=== PATIENT | male | born 1940 | race Caucasian/White ===

== ENCOUNTER 2019-07-01 09:42 | Emergency (ER) | payer MEDICARE, OTHER ==
[~2019-07-01] VITALS: Ht 185.5 cm; Wt 90.9 kg
[2019-07-01 10:04] LABS: HEMATOCRIT 47 % (40-54); HEMOGLOBIN 15.5 G/DL (13.3-17.7); MEAN CORPUSCULAR HEMOGLOBIN 30 PG (25-34); MEAN CORPUSCULAR HGB CONC 33 G/DL (32-36); MEAN CORPUSCULAR VOLUME 90 FL (80-99); MEAN PLATELET VOLUME 9.8 FL (7.4-10.4); PLATELET COUNT 282 10^3/uL (130-400); RED CELL DISTRIBUTION WIDTH 12.4 % (10.0-14.5); WHITE BLOOD COUNT 7.8 10^3/uL (4.3-11.0)
[2019-07-01 10:05] LABS: BASOPHILS # (AUTO) 0.1 10^3/uL (0.0-0.1); BASOPHILS % (AUTO) 1 % (0-10); EOSINOPHILS # (AUTO) 0.1 10^3/uL (0.0-0.3); EOSINOPHILS % (AUTO) 1 % (0-10); LYMPHOCYTES # (AUTO) 2.1 X 10^3 (1.0-4.0); LYMPHOCYTES % (AUTO) 27 % (12-44); MONOCYTES # (AUTO) 0.8 X 10^3 (0.0-1.0); MONOCYTES % (AUTO) 11 % (0-12); NEUTROPHILS # (AUTO) 4.6 X 10^3 (1.8-7.8); NEUTROPHILS % (AUTO) 60 % (42-75)
--- NOTE | 2019-07-01 10:06 | ED Abdominal Pain ---
General Chief Complaint: Abdominal/GI Problems Stated Complaint: ABD PAIN History of Present Illness Date Seen by Provider: Jul 01, 2019 Time Seen by Provider: 10:01 Initial Comments 78 yo male this AM on awakening noted LLQ abd/flank pain had normal BM this AM but had been constipated no N or V no urinary sx's denies hx of prior similar episodes no hx of urologic issues no prior episodes of diverticulitis had flu and pneumonia 3 weeks ago, those sx's pretty much gone now pt continues to not be able to give a urine ample bladder scan shows 350 catheter placed and eventually ~ 1 liter UA trace blood other neg pt's sx's TOTALLY RELIEVED after bladder drained Allergies and Home Medications Allergies Coded Allergies: No Known Drug Allergies (Unverified , 07/01/19) Patient Home Medication List Home Medication List Reviewed: Yes Review of Systems Review of Systems Constitutional: no symptoms reported; No fever EENTM: No Symptoms Reported Respiratory: No Symptoms Reported Cardiovascular: No Symptoms Reported Gastrointestinal: Abdominal Pain; Denies Nausea, Denies Vomiting Genitourinary: No Symptoms Reported Musculoskeletal: no symptoms reported Skin: no symptoms reported Psychiatric/Neurological: No Symptoms Reported Physical Exam Vital Signs Vital Signs - First Documented 07/01/19 09:45 Temp 37.1 Pulse 82 Resp 18 B/P (MAP) 159/89 (112) Pulse Ox 94 O2 Delivery Room Air Capillary Refill : Height/Weight/BMI Height: '" Weight: lbs. oz. kg; BMI Method: General Appearance: WD/WN, no apparent distress HEENT: PERRL/EOMI, pharynx normal Neck: supple Respiratory: lungs clear, normal breath sounds Cardiovascular: regular rate, rhythm Gastrointestinal: normal bowel sounds, non tender, soft; No guarding, No rebound Back: normal inspection Male: normal genitalia Neurologic/Psychiatric: zoning technician II-XII nml as tested, no motor/sensory deficits, alert, normal mood/affect, oriented x 3 Skin: normal color, warm/dry Progress/Results/Core Measures Results/Orders Lab Results Laboratory Tests Test 07/01/19 09:55 07/01/19 11:09 Range/Units White Blood Count 7.8 4.3-11.0 10^3/uL Red Blood Count 5.22 4.35-5.85 10^6/uL Hemoglobin 15.5 13.3-17.7 G/DL Hematocrit 47 40-54 % Mean Corpuscular Volume 90 80-99 FL Mean Corpuscular Hemoglobin 30 25-34 PG Mean Corpuscular Hemoglobin Concent 33 32-36 G/DL Red Cell Distribution Width 12.4 10.0-14.5 % Platelet Count 282 130-400 10^3/uL Mean Platelet Volume 9.8 7.4-10.4 FL Neutrophils (%) (Auto) 60 42-75 % Lymphocytes (%) (Auto) 27 12-44 % Monocytes (%) (Auto) 11 0-12 % Eosinophils (%) (Auto) 1 0-10 % Basophils (%) (Auto) 1 0-10 % Neutrophils # (Auto) 4.6 1.8-7.8 X 10^3 Lymphocytes # (Auto) 2.1 1.0-4.0 X 10^3 Monocytes # (Auto) 0.8 0.0-1.0 X 10^3 Eosinophils # (Auto) 0.1 0.0-0.3 10^3/uL Basophils # (Auto) 0.1 0.0-0.1 10^3/uL Sodium Level 140 135-145 MMOL/L Potassium Level 4.2 3.6-5.0 MMOL/L Chloride Level 101 98-107 MMOL/L Carbon Dioxide Level 27 21-32 MMOL/L Anion Gap 12 5-14 MMOL/L Blood Urea Nitrogen 12 7-18 MG/DL Creatinine 0.85 0.60-1.30 MG/DL Estimat Glomerular Filtration Rate > 60 BUN/Creatinine Ratio 14 Glucose Level 121 H 70-105 MG/DL Calcium Level 9.1 8.5-10.1 MG/DL Corrected Calcium 8.9 8.5-10.1 MG/DL Total Bilirubin 1.0 0.1-1.0 MG/DL Aspartate Amino Transf (AST/SGOT) 16 5-34 U/L Alanine Aminotransferase (ALT/SGPT) 13 0-55 U/L Alkaline Phosphatase 46 40-136 U/L Total Protein 7.3 6.4-8.2 GM/DL Albumin 4.2 3.2-4.5 GM/DL Urine Color YELLOW Urine Clarity CLEAR Urine pH 7.0 5-9 Urine Specific [place] 1.010 L 1.016-1.022 Urine Protein NEGATIVE NEGATIVE Urine Glucose (UA) NEGATIVE NEGATIVE Urine Ketones NEGATIVE NEGATIVE Urine Nitrite NEGATIVE NEGATIVE Urine Bilirubin NEGATIVE NEGATIVE Urine Urobilinogen 0.2 < = 1.0 MG/DL Urine Leukocyte Esterase NEGATIVE NEGATIVE Urine RBC (Auto) 2+ H NEGATIVE Urine RBC 0-2 /HPF Urine WBC NONE /HPF Urine Squamous Epithelial Cells RARE /HPF Urine Crystals NONE /LPF Urine Bacteria NEGATIVE /HPF Urine Casts NONE /LPF Urine Mucus NONE /LPF Urine Culture Indicated NO My Orders Orders - ITZ REICH MD Iv Heplock-Insert (Order) (07/01/19 09:53) Cbc With Automated Diff (07/01/19 09:53) Comprehensive Metabolic Panel (07/01/19 09:53) Urinalysis (07/01/19 09:53) Fentanyl Injection (Sublimaze Injection (07/01/19 11:00) Lidocaine 2% (Urojet) (Xylocaine Urojet) (07/01/19 10:52) Medications Given in ED Current Medications Medications Dose Ordered Sig/Rand Route Start Time Stop Time Status Last Admin Dose Admin Fentanyl Citrate 25 mcg Q1H PRN IVP 07/01/19 11:00 07/01/19 10:58 25 MCG Lidocaine HCl 10 ml STK-MED ONCE .ROUTE 07/01/19 10:52 07/01/19 10:55 DC 07/01/19 10:59 10 ML Vital Signs/I&O 07/01/19 09:45 Temp 37.1 Pulse 82 Resp 18 B/P (MAP) 159/89 (112) Pulse Ox 94 O2 Delivery Room Air Progress Progress Note : Progress Note blood work normal pt has urinary retention will leave in catheter Rx cipro follow up Uro Dr. Mock Departure Impression Primary Impression: Urinary retention Disposition: 01 HOME, SELF-CARE Condition: Stable Departure-Patient Inst. Decision time for Depature: 11:36 Referrals: JANEL JEFFREY MD (PCP/Family) Primary Care Physician Patient Instructions: Urinary Retention (DC) Add. Discharge Instructions: please call Tuesday AM for a follow up appointment with [phone] Scripts Ciprofloxacin HCl (Ciprofloxacin HCl) 500 Mg Tablet 250 MG PO BID for 5 Days, #10 TAB Prov: ITZ REICH MD 07/01/19 ITZ REICH MD Jul 01, 2019 10:06 POS
[2019-07-01 10:27] LABS: BUN/CREATININE RATIO 14; CARBON DIOXIDE 27 MMOL/L (21-32); CHLORIDE 101 MMOL/L (98-107); CREATININE SERUM 0.85 MG/DL (0.60-1.30); GFR ESTIMATED > 60; POTASSIUM 4.2 MMOL/L (3.6-5.0); SODIUM 140 MMOL/L (135-145)
[2019-07-01 10:28] LABS: ALANINE AMINOTRANSFERASE 13 U/L (0-55); ALBUMIN 4.2 GM/DL (3.2-4.5); ALKALINE PHOSPHATASE 46 U/L (40-136); CALCIUM 9.1 MG/DL (8.5-10.1); GLUCOSE 121 MG/DL (70-105); TOTAL PROTEIN 7.3 GM/DL (6.4-8.2)
[2019-07-01] MEDS ORDERED: LIDOCAINE UROJET 2% GEL 10 ML PKG ONE (10:52)
[2019-07-01] MEDS ORDERED: fentaNYL INJECTION 100 MCG/2 ML AMP IVP PRN (11:00)
[2019-07-01 11:20] LABS: BACTERIA,URINE NEGATIVE /HPF; BILIRUBIN,URINE NEGATIVE (NEGATIVE); CLARITY,URINE CLEAR; COLOR,URINE YELLOW; GLUCOSE, URINE (UA) NEGATIVE (NEGATIVE); KETONES,URINE NEGATIVE (NEGATIVE); LEUKOCYTE ESTERASE ,URINE NEGATIVE (NEGATIVE); NITRITE,URINE NEGATIVE (NEGATIVE); PROTEIN,URINE NEGATIVE (NEGATIVE); RBC,URINE 0-2 /HPF; SQUAMOUS EPITHELIAL CELL,UR RARE /HPF
[2019-07-01] MEDS ORDERED: CIPR500T4 PO (11:37)
[2019-07-01 12:15] VITALS: BP 130/70
== END 2019-07-01 12:18 | disposition home or self-care (01) ==
LOC: EDUNIT# 09:42 → ER FS 09:44
DX: R33.9 Retention of urine, unspecified (principal)
CPT/HCPCS: 36415; 51702; 80053; 81000; 85025

== ENCOUNTER 2019-07-14 15:13 | Emergency (ER) | payer MEDICARE, OTHER ==
[~2019-07-14] VITALS: Ht 185 cm; Wt 92.4 kg
[~2019-07-14 15:13] MED LIST: CIPR500T4 PO
[2019-07-14] MEDS ORDERED: LIDOCAINE UROJET 2% GEL 10 ML PKG ONE (15:26)
--- NOTE | 2019-07-14 15:46 | ED GU-Male ---
General Chief Complaint: - Urinary Stated Complaint: UNABLE TO URINATE Nursing Triage Note: Was seen here two weeks ago for urinary retention and had a catheter placed. Dr Brown removed the catheter on 07/10. Has been urinating ok until last night. Is now only able to urinate very small amounts and is feeling pressure and some suprapubic pain rated at 7/10. He is scheduled to see Dr Brown again on Jul 24 and states they are planning for prostate surgery. Source: patient, family Exam Limitations: no limitations History of Present Illness Date Seen by Provider: Jul 14, 2019 Time Seen by Provider: 15:42 Initial Comments This 78-year-old white male presents and urinary retention that began this afternoon. The patient and had a similar presentation within the last few days for which she was catheterized and referred to Dr. Brown. Patient was placed on Bactrim. He had his Duke catheter removed on July 10 and did well until today (July 14). The patient denies associated fever, chills, flank pain, hematuria, nausea, vomiting, or diarrhea. Allergies and Home Medications Allergies Coded Allergies: No Known Drug Allergies (Unverified , 07/01/19) Home Medications Ciprofloxacin HCl 500 Mg Tablet, 250 MG PO BID Prescribed by: ITZ REICH on 07/01/19 1137 Patient Home Medication List Home Medication List Reviewed: Yes Review of Systems Review of Systems Constitutional: No fever EENTM: no symptoms reported Respiratory: No cough Cardiovascular: No chest pain Gastrointestinal: No abdominal pain, No vomiting Genitourinary: denies burning, denies dysuria, denies frequency; other Musculoskeletal: No back pain (urinary retention) Skin: no symptoms reported Psychiatric/Neurological: No Symptoms Reported Endocrine: No Symptoms Reported Hematologic/Lymphatic: No Symptoms Reported Past Ivvfjqa-Wafvul-Tpnrjr Hx Past Med/Social Hx: Reviewed Nursing Past Med/Soc Hx Patient Social History Alcohol Use: Denies Use Recreational Drug Use: No Smoking Status: Never a Smoker 2nd Hand Smoke Exposure: No Recent Foreign Travel: No Contact w/Someone Who Travel: No Recent Infectious Disease Expo: No Recent Hopitalizations: No Physical Abuse: No Sexual Abuse: No Mistreated: No Fear: No Seasonal Allergies Seasonal Allergies: No Past Medical History Surgeries: Yes Tonsillectomy Respiratory: No Cardiac: No Neurological: No Genitourinary: Yes Benign Prostatic Hyperpl Gastrointestinal: No Musculoskeletal: No Endocrine: No HEENT: No Cancer: No Psychosocial: No Integumentary: Yes (shingles) Physical Exam Vital Signs Vital Signs - First Documented 07/14/19 15:28 Temp 36.4 Pulse 89 Resp 16 B/P (MAP) 159/88 (111) Pulse Ox 96 Capillary Refill : Less Than 3 Seconds Height, Weight, BMI Height: '" Weight: lbs. oz. kg; 26.00 BMI Method: General Appearance: mild distress; No WD/WN HEENT: normal ENT inspection Neck: normal inspection Cardiovascular: regular rate, rhythm Respiratory: lungs clear, normal breath sounds Gastrointestinal: normal bowel sounds, distended (over the suprapubic region) Back: normal inspection Extremities: normal range of motion, normal inspection Neurologic/Psychiatric: no motor/sensory deficits, alert, normal mood/affect Skin: normal color, warm/dry Progress/Results/Core Measures Suspected Sepsis Recent Fever Within 48 Hours: No Infection Criteria Present: None New/Unexplained Altered Menta: No Sepsis Screen: No Definite Risk SIRS Temperature: Pulse: 89 Respiratory Rate: 16 Blood Pressure 159 /88 Mean: 111 Results/Orders Lab Results Laboratory Tests Test 07/14/19 15:45 Range/Units Urine Color YELLOW Urine Clarity CLEAR Urine pH 7.0 5-9 Urine Specific [place] 1.010 L 1.016-1.022 Urine Protein NEGATIVE NEGATIVE Urine Glucose (UA) NEGATIVE NEGATIVE Urine Ketones NEGATIVE NEGATIVE Urine Nitrite NEGATIVE NEGATIVE Urine Bilirubin NEGATIVE NEGATIVE Urine Urobilinogen 0.2 < = 1.0 MG/DL Urine Leukocyte Esterase NEGATIVE NEGATIVE Urine RBC (Auto) NEGATIVE NEGATIVE Urine RBC NONE /HPF Urine WBC RARE /HPF Urine Squamous Epithelial Cells RARE /HPF Urine Crystals NONE /LPF Urine Bacteria NEGATIVE /HPF Urine Casts NONE /LPF Urine Mucus NEGATIVE /LPF Urine Culture Indicated NO My Orders Orders - JASON CHRISTOPHER MD Lidocaine 2% (Urojet) (Xylocaine Urojet) (07/14/19 15:26) Catheter(Uri) To Dependent Brandy (07/14/19 15:39) Ua Culture If Indicated (07/14/19 15:39) Vital Signs/I&O 07/14/19 15:28 Temp 36.4 Pulse 89 Resp 16 B/P (MAP) 159/88 (111) Pulse Ox 96 Capillary Refill : Less Than 3 Seconds Blood Pressure Mean: 111 Progress Note : Time: 16:05 Progress Note Duke catheter was placed and patient had a liter of urine drained with significant improvement in his discomfort. The urinalysis was unremarkable. Patient was given a leg bag to take home. I wrote a prescription for more Bactrim DS. I asked the patient follow-up with his urologist Dr. Valdovinos on Tuesday. He was invited to return to the emergency department if any further problems or questions. Departure Impression Primary Impression: Urinary retention Disposition: HOME, SELF-CARE Condition: Improved Departure-Patient Inst. Decision time for Depature: 16:07 Referrals: JANEL JEFFREY MD (PCP) Primary Care Physician LEE BROWN MD Patient Instructions: Urinary Retention (DC) Add. Discharge Instructions: Continue with the Bactrim DS. Use the Duke catheter. Call Dr. Brown's office Tuesday morning. Them come back for any problems or questions. All discharge instructions reviewed with patient and/or family. Voiced understanding. Scripts Sulfamethoxazole/Trimethoprim (Bactrim Ds Tablet) 1 Each Tablet 1 EACH PO BID for 10 Days, TAB Prov: JASON CHRISTOPHER MD 07/14/19 JASON CHRISTOPHER MD Jul 14, 2019 15:46
[2019-07-14 15:59] LABS: BACTERIA,URINE NEGATIVE /HPF; BILIRUBIN,URINE NEGATIVE (NEGATIVE); CLARITY,URINE CLEAR; COLOR,URINE YELLOW; GLUCOSE, URINE (UA) NEGATIVE (NEGATIVE); KETONES,URINE NEGATIVE (NEGATIVE); LEUKOCYTE ESTERASE ,URINE NEGATIVE (NEGATIVE); NITRITE,URINE NEGATIVE (NEGATIVE); PROTEIN,URINE NEGATIVE (NEGATIVE); SQUAMOUS EPITHELIAL CELL,UR RARE /HPF; WBC,URINE RARE /HPF
[2019-07-14] MEDS ORDERED: SULF1TAB35 PO (16:10)
[2019-07-14 16:28] VITALS: BP 114/63
== END 2019-07-14 16:31 | disposition home or self-care (01) ==
LOC: EDUNIT# 15:13 → ER FS 15:14
DX: R33.9 Retention of urine, unspecified (principal); Z90.89 Acquired absence of other organs
CPT/HCPCS: 51702; 81000

== ENCOUNTER 2019-07-18 00:36 | Emergency (ER) | payer MEDICARE, OTHER ==
[~2019-07-18] VITALS: Ht 185.5 cm; Wt 90.9 kg
[~2019-07-18 00:36] MED LIST changes: +SULF1TAB35 PO
--- NOTE | 2019-07-18 00:54 | ED GU-Female ---
General Chief Complaint: - Urinary Stated Complaint: ABD PAIN Source: patient Exam Limitations: no limitations History of Present Illness Date Seen by Provider: Jul 18, 2019 Time Seen by Provider: 00:50 Initial Comments Patient complains of suprapubic discomfort and inability to urinate for the past several hours. He had his Duke catheter removed (inserted for urinary retention) this morning. He has been unable to urinate since this afternoon. This is his third episode of urinary retention in the past 2 weeks. He denies fevers or chills. He has some lower back pain. He is still on antibiotics and Flomax. Allergies and Home Medications Allergies Coded Allergies: No Known Drug Allergies (Unverified , 07/01/19) Home Medications Ciprofloxacin HCl 500 Mg Tablet, 250 MG PO BID Prescribed by: ITZ REICH on 07/01/19 1137 Sulfamethoxazole/Trimethoprim 1 Each Tablet, 1 EACH PO BID Prescribed by: JASON CHRISTOPHER MD on 07/14/19 1610 Patient Home Medication List Home Medication List Reviewed: Yes Review of Systems Review of Systems Constitutional: no symptoms reported Respiratory: no symptoms reported Cardiovascular: no symptoms reported Gastrointestinal: abdominal pain Genitourinary: see HPI Musculoskeletal: back pain All Other Systemes Reviewed Negative Unless Noted: Yes Past Htavtaq-Xwnasm-Djrwyq Hx Patient Social History Alcohol Use: Denies Use Recreational Drug Use: No 2nd Hand Smoke Exposure: No Recent Foreign Travel: No Contact w/Someone Who Travel: No Recent Hopitalizations: No Physical Abuse: No Sexual Abuse: No Mistreated: No Fear: No Seasonal Allergies Seasonal Allergies: No Past Medical History Surgeries: Yes Tonsillectomy Respiratory: No Cardiac: No Neurological: No Genitourinary: Yes Benign Prostatic Hyperpl Gastrointestinal: No Musculoskeletal: No Endocrine: No HEENT: No Cancer: No Psychosocial: No Integumentary: Yes (shingles) Physical Exam Vital Signs Capillary Refill : Height, Weight, BMI Height: '" Weight: lbs. oz. kg; 26.00 BMI Method: General Appearance: WD/WN, no apparent distress Neck: supple Cardiovascular: regular rate, rhythm Respiratory: lungs clear Gastrointestinal: soft, distended (distended bladder) Extremities: normal inspection Neurologic/Psychiatric: alert, normal mood/affect Skin: normal color, warm/dry Progress/Results/Core Measures Suspected Sepsis SIRS Temperature: Pulse: Respiratory Rate: Blood Pressure / Mean: Results/Orders My Orders Orders - JENNY RAY MD Catheter(Uri) To Dependent Brandy (07/18/19 00:45) Vital Signs/I&O Capillary Refill : Departure Impression Primary Impression: Urinary retention Disposition: HOME, SELF-CARE Condition: Improved Departure-Patient Inst. Decision time for Depature: 00:52 Referrals: JANEL JEFFREY MD (PCP/Family) Primary Care Physician Patient Instructions: How to Care for Your Duke Catheter, Male Add. Discharge Instructions: See your urologist as soon as possible. Empty the catheter bag as needed. All discharge instructions reviewed with patient and/or family. Voiced understanding. JENNY RAY MD Jul 18, 2019 00:53
[2019-07-18 01:09] VITALS: BP 156/76
== END 2019-07-18 01:09 | disposition home or self-care (01) ==
LOC: EDUNIT# 00:36 → ER FS 00:38
DX: R33.9 Retention of urine, unspecified (principal); Z90.89 Acquired absence of other organs
CPT/HCPCS: 51702

== ENCOUNTER 2019-07-19 09:27 | Emergency (ER) | payer MEDICARE, OTHER ==
[~2019-07-19] VITALS: Ht 185.5 cm; Wt 90.9 kg
--- NOTE | 2019-07-19 10:02 | ED GU-Male ---
General Chief Complaint: catheter not flowing Stated Complaint: CATHETER PROBLEM History of Present Illness Date Seen by Provider: Jul 19, 2019 Time Seen by Provider: 09:57 Initial Comments 78 yo male seen by myself 07-01 with LLQ pain eventually found to be 2ndary to urinary retention corbin placed with relief catheter has since been removed twice resulting in recurrent retention both times so had corbin placed for 3rd time yest pt noted urine output stopped and pain returned overnight nurses tried to irrigate but occluded removed (clot in tip) new corbin placed with sig volume return pt now comfortable again is still on sulfa antiibiotic Allergies and Home Medications Allergies Coded Allergies: No Known Drug Allergies (Unverified , 07/01/19) Home Medications Ciprofloxacin HCl 500 Mg Tablet, 250 MG PO BID Prescribed by: ITZ REICH on 07/01/19 1137 Sulfamethoxazole/Trimethoprim 1 Each Tablet, 1 EACH PO BID Prescribed by: JASON CHRISTOPHER MD on 07/14/19 1610 Patient Home Medication List Home Medication List Reviewed: Yes Review of Systems Review of Systems Constitutional: No fever Respiratory: no symptoms reported Cardiovascular: no symptoms reported Gastrointestinal: abdominal pain; No diarrhea, No vomiting Genitourinary: other (see HPI) Musculoskeletal: no symptoms reported Skin: no symptoms reported Past Eeyozkd-Bmlols-Ridfcn Hx Patient Social History 2nd Hand Smoke Exposure: No Recent Foreign Travel: No Recent Hopitalizations: No Seasonal Allergies Seasonal Allergies: No Past Medical History Surgeries: Yes Tonsillectomy Respiratory: No Cardiac: No Neurological: No Genitourinary: Yes Benign Prostatic Hyperpl Gastrointestinal: No Musculoskeletal: No Endocrine: No HEENT: No Cancer: No Psychosocial: No Integumentary: Yes (shingles) Physical Exam Vital Signs Capillary Refill : Height, Weight, BMI Height: '" Weight: lbs. oz. kg; 26.00 BMI Method: General Appearance: WD/WN, mild distress HEENT: PERRL/EOMI, pharynx normal Neck: supple Cardiovascular: regular rate, rhythm Gastrointestinal: normal bowel sounds, soft, other (suprapubic fullness and tenderness) Procedures/Interventions see HPI with new cath in, blood cleared and pt comfortable Progress/Results/Core Measures Suspected Sepsis SIRS Temperature: Pulse: Respiratory Rate: Blood Pressure / Mean: Results/Orders Vital Signs/I&O Capillary Refill : Departure Impression Primary Impression: Corbin catheter problem Qualified Codes: T83.9XXA - Unspecified complication of genitourinary prosthetic device, implant and graft, initial encounter Disposition: 01 HOME, SELF-CARE Condition: Improved Departure-Patient Inst. Decision time for Depature: 10:03 Referrals: JANEL JEFFREY MD (PCP/Family) Primary Care Physician Patient Instructions: How to Care for Your Corbin Catheter, Male Add. Discharge Instructions: would just plan on keeping catheter in for now continue the antibiotic follow up with urology ITZ REICH MD Jul 19, 2019 10:02
[2019-07-19 10:05] VITALS: BP 130/72
== END 2019-07-19 10:05 | disposition home or self-care (01) ==
LOC: EDUNIT# 09:27 → ER FS 09:28
DX: T83.098A Other mechanical complication of other urinary catheter, initial encounter (principal); Z90.89 Acquired absence of other organs
CPT/HCPCS: 51702

== ENCOUNTER 2019-08-01 05:54 | Inpatient (IN) | payer MEDICARE, OTHER ==
[2019-08-01] VITALS (13 sets, daily range): BP systolic 73–147; BP diastolic 49–107
[~2019-08-01] VITALS: Ht 185.4 cm; Wt 90.9 kg
[~2019-08-01 05:54] MED LIST changes: +GABA-488 PO
[2019-08-01] MEDS ORDERED: ROCURONIUM 10 MG/ML 5 ML SYRINGE IV ONE (06:35)
[2019-08-01] MEDS ORDERED: ONDANSETRON 4 MG/2 ML (SDV) Z0FRAN ONE (06:35)
[2019-08-01] MEDS ORDERED: proPOfol 200 MG/20 ML (DIPRIVAN) VIAL IV ONE (06:35)
[2019-08-01] MEDS ORDERED: fentaNYL INJECTION 100 MCG/2 ML AMP ONE (06:35)
[2019-08-01] MEDS ORDERED: GLYCOPYRROLATE 0.2 MG/ML (ROBINUL) 2 ML VIAL ONE (06:35)
[2019-08-01] MEDS ORDERED: LIDOCAINE PF 2% 5 ML (XYLOCAINE) VIAL ONE (06:35)
[2019-08-01] MEDS ORDERED: SEVOFLURANE (ULTANE) 15 ML INHAL SOLN ONE ×5 (06:35→09:21)
[2019-08-01] MEDS ORDERED: MIDAZOLAM 2 MG/2 ML (VERSED) VIAL ONE (06:35)
[2019-08-01] MEDS ORDERED: DEXAMETHASONE 10 MG/ML (DECADRON) 1 ML VIAL ONE (06:35)
[2019-08-01 06:42] LABS: BASOPHILS % (AUTO) 1 % (0-10); EOSINOPHILS # (AUTO) 0.1 10^3/uL (0.0-0.3); EOSINOPHILS % (AUTO) 1 % (0-10); HEMATOCRIT 43 % (40-54); HEMOGLOBIN 14.2 G/DL (13.3-17.7); LYMPHOCYTES # (AUTO) 2.5 X 10^3 (1.0-4.0); LYMPHOCYTES % (AUTO) 34 % (12-44); MEAN CORPUSCULAR HEMOGLOBIN 29 PG (25-34); MEAN CORPUSCULAR HGB CONC 33 G/DL (32-36); MEAN CORPUSCULAR VOLUME 88 FL (80-99); MEAN PLATELET VOLUME 9.5 FL (7.4-10.4); MONOCYTES # (AUTO) 0.7 X 10^3 (0.0-1.0); MONOCYTES % (AUTO) 9 % (0-12); NEUTROPHILS # (AUTO) 4.2 X 10^3 (1.8-7.8); NEUTROPHILS % (AUTO) 56 % (42-75); PLATELET COUNT 265 10^3/uL (130-400); WHITE BLOOD COUNT 7.5 10^3/uL (4.3-11.0)
[2019-08-01] MEDS ORDERED: cefTRIAXone FOR IV USE 1,000 MG in WATER (STERILE) FOR INJECTION 10 ML IV ONE (06:45)
[2019-08-01] MEDS ORDERED: GENTAMICIN 40 MG/ML 2 ML INJ SDV ONE (06:53)
--- NOTE | 2019-08-01 06:57 | Progress Note-Pre Operative ---
Pre-Operative Progress Note H&P Reviewed The H&P was reviewed, patient examined and no changes noted. Date Seen by Provider: Aug 01, 2019 Time Seen by Provider: 06:56 Date H&P Reviewed: Aug 01, 2019 Time H&P Reviewed: 06:56 Pre-Operative Diagnosis: BPH WITH PROSTATISM AND URINE RETENTION LEE BROWN MD Aug 01, 2019 06:57
[2019-08-01 07:00] LABS: BUN/CREATININE RATIO 13; CARBON DIOXIDE 24 MMOL/L (21-32); CHLORIDE 105 MMOL/L (98-107); CREATININE SERUM 0.83 MG/DL (0.60-1.30); GFR ESTIMATED > 60; GLUCOSE 107 MG/DL (70-105); POTASSIUM 3.8 MMOL/L (3.6-5.0); SODIUM 140 MMOL/L (135-145)
[2019-08-01] MEDS ORDERED: CATHETER FLUSH 10 ML SYR IV PRN (07:15)
[2019-08-01] MEDS: LACTATED RINGERS 1,000 ML IV PRN ×4 (07:23→10:19)
[2019-08-01] MEDS ORDERED: BUPIVACAINE 0.25% 30 ML (SENSORCAINE) VIAL ONE (09:04)
--- NOTE | 2019-08-01 09:25 | Progress Note-Post Operative ---
Post-Operative Progess Note Surgeon (s)/Civil Engineering Draftsperson (s) Surgeon LEE BROWN MD Civil Engineering Draftsperson: SHASHANK Pre-Operative Diagnosis BPH WITH PROSTATISM AND URINE RETENTION Post-Operative Diagnosis SAME Procedure & Operative Findings Date of Procedure 08/01/19 Procedure Performed/Findings SUPRAPUBIC PROSTATECTOMY Anesthesia Type GENERAL Estimated Blood Loss Estimated blood loss (mL): 300CC Specimens/Packing Specimens Removed PROSTATIC ADENOMA Packing: HEMOVAC DRAIN, URETHRAL AND SUPRAPUBIC CATHETERS LEE BROWN MD Aug 01, 2019 09:25
[2019-08-01] MEDS ORDERED: ONDANSETRON 4 MG/2 ML (SDV) Z0FRAN IVP PRN ×2 (09:45→11:15)
[2019-08-01] MEDS ORDERED: MEPERIDINE (DEMEROL) INJ 50 MG/ML IVP ONE (09:45)
[2019-08-01] MEDS ORDERED: morphine INJ 10 MG/ML 1ML (SYR OR VIAL) IVP ONE (09:45)
[2019-08-01 10:03] LABS: HEMOGLOBIN 12.4 G/DL (13.3-17.7); MEAN PLATELET VOLUME 9.4 FL (7.4-10.4); RED CELL DISTRIBUTION WIDTH 12.7 % (10.0-14.5)
[2019-08-01 10:20] LABS: BUN/CREATININE RATIO 14; CARBON DIOXIDE 24 MMOL/L (21-32); CHLORIDE 108 MMOL/L (98-107); GFR ESTIMATED > 60; GLUCOSE 143 MG/DL (70-105); POTASSIUM 4.4 MMOL/L (3.6-5.0); SODIUM 139 MMOL/L (135-145)
--- NOTE | 2019-08-01 10:40 | NUR ---
this RN took over patient care at this time. Meme RN from PACU explained to this RN CBI and Dr Sanches expectations post opp. all 3 drains are draining fine, dressing to midline is clean dry and intact. patient verbalizes no other needs at this time. family is verbalizing patient need for pain medication. this RN informed them that patient would be on a DRY CANS OPERATOR as soon as it was available
--- NOTE | 2019-08-01 10:40 | NUR ---
WILFREDO FLORES admitted to room 419-1, with an admitting diagnosis of post operative open suprapubic prostatectomy, on 08/01/19 from day Surgery via bed, accompanied by family and staff.WILFREDO FLORES introduced to surroundings, call light, bed controls, phone, TV, temperature control, lights, meal times, smoking policy, visitor policy, side rail policy, bathrooms and showers. Patient Rights given to patient in the handbook. WILFREDO FLORES verbalizes understanding that [facility] is not responsible for the loss or damage to any personal effects or valuables that are kept in the patients posession during their hospitalization. WILFREDO FLORES verbalizes understanding of Interdisciplinary Patient Education. Patient and/or family were informed about the Rapid Response Team and its purpose.
[2019-08-01] MEDS ORDERED: LACTATED RINGERS 1,000 ML IV SCH (11:15)
[2019-08-01] MEDS ORDERED: cefTRIAXone FOR IV USE 2,000 MG in WATER (STERILE) FOR INJECTION 20 ML IV SCH (11:15)
[2019-08-01] MEDS ORDERED: NALOXONE 0.4 MG/ML 1 ML (NARCAN) VIAL IV PRN (11:45)
[2019-08-01] MEDS ORDERED: METOCLOPRAMIDE INJ 10 MG/2 ML (REGLAN) IV PRN (11:45)
[2019-08-01] MEDS ORDERED: ONDANSETRON 4 MG/2 ML (SDV) Z0FRAN IV PRN (11:45)
[2019-08-01] MEDS: fentaNYL INJECTION 1,000 MCG in NS (IVPB) 80 ML IV SCH (12:51)
[2019-08-01] MEDS: NS IV 1000 ML 1,000 ML IV SCH (12:58)
--- NOTE | 2019-08-01 15:08 | Consultation - Hospitalist ---
HPI History of Present Illness: HPI/Chief Complaint Pt is 78yoCM with a PMH of postherpetic neuralgia and BPH who was admitted for prostatectomy. Per patient he had severe retention that developed over the past month and was found to have a very large prostate. He has no complaints at this time. Pain is well controlled. Daughter is concerned about blood loss in the OR but hgb is stable. I am consulted for medical management. Source: patient Date Seen 08/01/19 Attending Physician Bro Mock MD PCP Neo Roberts MD Referring Physician Date of Admission Aug 01, 2019 at 05:54 Home Medications & Allergies Home Medications Reviewed patient Home Medication Reconciliation performed by pharmacy medication reconciliations computer laboratory technician and/or nursing. Patients Allergies have been reviewed. Allergies Allergies Coded Allergies No Known Drug Allergies (Unverified07/27/19) Past Fcxkmzb-Bexzgb-Kqhrit Hx Past Med/Social Hx: Reviewed Nursing Past Med/Soc Hx Patient Social History Marrital Status: Alcohol Use: Denies Use Recreational Drug Use: No Former Smoker, Quit: Jul 27, 1989 2nd Hand Smoke Exposure: Yes Physical Abuse Screen: No Sexual Abuse: No Recent Foreign Travel: No Contact w/other who traveled: No Recent Hopitalizations: No Recent Infectious Disease Expo: No Immunizations Up To Date Date of Influenza Vaccine: Apr 23, 2019 Seasonal Allergies Seasonal Allergies: No Past Medical History Surgeries: Prostatectomy, Tonsillectomy Neurological: Neuropathy Sexually Transmitted Disease: No HIV/AIDS: No Genitourinary: Benign Prostatic Hyperpl, Prostate Problems Loss of Vision: Denies Hearing Impairment: Denies History of Blood Disorders: No Adverse Reaction to Blood Garay: No (N/A) Review of Systems Constitutional: no symptoms reported EENTM: no symptoms reported Respiratory: no symptoms reported Cardiovascular: no symptoms reported Gastrointestinal: no symptoms reported Genitourinary: see HPI Musculoskeletal: no symptoms reported Skin: no symptoms reported Psychiatric/Neurological: No Symptoms Reported Physical Exam Physical Exam Vital Signs Vital Signs - First Documented 08/01/19 06:05 Temp 36.5 Pulse 72 Resp 20 B/P (MAP) 147/107 (120) Pulse Ox 96 O2 Delivery Room Air Capillary Refill : Height, Weight, BMI Height: '" Weight: lbs. oz. kg; 26.44 BMI Method: General Appearance: No Apparent Distress, WD/WN Respiratory: Lungs Clear, No Accessory Muscle Use, No Respiratory Distress Cardiovascular: Regular Rate, Rhythm, No Murmur Gastrointestinal: Normal Bowel Sounds, Non Tender, Soft Neurologic/Psychiatric: Alert, Oriented x3, Normal Mood/Affect Skin: Normal Color, Warm/Dry Results Results/Procedures Labs Laboratory Tests 08/01/19 06:25 08/01/19 09:50 Patient resulted labs reviewed. Assessment/Plan Assessment and Plan Assess & Plan/Chief Complaint BPH s/p prostatectomy Management per primary Hold Lovenox until ok with Dr Mock path pending Postherpetic neuralgia Resume home gabapentin when able to PO Anemia acute blood loss, trend DIANA PARKINSON MD Aug 01, 2019 15:08
[2019-08-01] MEDS: cefTRIAXone FOR IV USE 2,000 MG in WATER (STERILE) FOR INJECTION 20 ML IV SCH (16:03)
--- NOTE | 2019-08-01 19:53 | OPERATIVE REPORT ---
DATE OF SERVICE: 08/01/2019 PREOPERATIVE DIAGNOSIS: Benign prostatic hypertrophy with prostatism and retention. POSTOPERATIVE DIAGNOSIS: Benign prostatic hyperplasia with prostatism and retention. OPERATION PERFORMED: Suprapubic prostatectomy. SURGEON: Bro Brown MD. ANESTHESIA: General. LABORER SHELLFISH PROCESSING: Storm Bower DO COMPLICATIONS: None. DESCRIPTION OF PROCEDURE: Under satisfactory general anesthesia, the patient in supine position, abdomen, genitalia and thigh were prepped and draped in the usual sterile fashion. After filling of the bladder was about 400 mL of antibiotic solution through the existing catheter that was removed before prepping. A midline incision was made from the symphysis pubis to below the umbilicus, carried through the skin, subcutaneous tissue and fascia. Midline was identified and the recti were retracted laterally. Suprapubic space was developed bluntly. The Harmon retractor was applied. A cystotomy vertically was performed. The fluid from the bladder was drained. A third blade was put to expose the inside of the bladder, visualized the intravesical protrusion of the prostate. It was elevated to visualize the trigone and the ureteral orifice that were kept on attention all through the surgery and were never traumatized. I went ahead and performed a circumcising type of incision around the median lobe as well as the other part of the prostate on the lateral lobe and anteriorly developed the surgical capsule with my finger and dissected all around. The dissection posteriorly was a little bit more difficult. However, we did not run into any problem and we stayed in our plane. The prostate was sent for weight and pathology. I put a suture between the trigone and the capsule of the prostate to there for easy catheterization in the future. Ureteric orifices were seen spurting urine at all time. A vaginal pack was placed and pressure was applied. This was then removed and hemostasis was very satisfactory. A 22-Bulgarian 3-way 30 mL balloon catheter was inserted in the bladder, the balloon inflated to 60 mL and put on some traction for hemostasis. A suprapubic tube was placed through a separate stab wound on the left side of the incision to be brought separately in the anterior wall of the bladder. The balloon was not inflated, except later after closing of the bladder with 10 mL of fluid. The bladder was closed in two layers, first the mucosa with running 3-0 chromic catgut and then the seromuscular layer with interrupted 2-0 chromic catgut. We irrigated by hand both catheters freely and there was no leak or extravasation from the cystostomy. Hemostasis was very satisfactory. The retropubic space was drained with a Brett drain brought through a separate stab wound on the right side of the incision and secured in position with an 0 silk suture. Closure was performed in layers, the fascia with interrupted 0 Vicryl, the subcutaneous tissue with few interrupted 3-0 plain and the skin with messi. Suprapubic tube was secured in position with 0 silk suture. We let the CBI run through the urethral catheter and the suprapubic tube to gravity. The ureteral catheter was put on traction. The color of the urine was very satisfactory at the end of the procedure. The needle and sponge counts correct x2. Estimated blood loss was 300 mL, none of which was replaced. We will check a CBC and basic metabolic panel in the recovery room, and in the morning, we will have the hospitalist to manage him medically since his doctor is in [place]. The patient tolerated the procedure and anesthesia well, and was sent to recovery room in stable condition after applying dressing and anesthesia performing epigastric block for pain control from the incision. Job ID: [id number] DocumentID: [id number] Dictated Date: 08/01/2019 10:09:31 Trucking Contractor Date: 08/01/2019 15:50:05 Dictated By: BRO BROWN MD
[2019-08-01] MEDS ORDERED: ZOLPIDEM 5 MG (AMBIEN) TAB ONE ×2 (21:25→23:20)
[2019-08-01] MEDS: ZOLPIDEM 5 MG (AMBIEN) TAB PO PRN ×2 (21:33→23:30)
[2019-08-01] MEDS: diphenhydrAMINE 50 MG/ML INJ (BENADRYL) IV PRN (21:47)
[2019-08-02 00:05] VITALS: BP 116/66
[2019-08-02 04:10] VITALS: BP 110/61
[2019-08-02 06:51] LABS: BASOPHILS % (AUTO) 0 % (0-10); EOSINOPHILS % (AUTO) 0 % (0-10); HEMATOCRIT 35 % (40-54); HEMOGLOBIN 11.5 G/DL (13.3-17.7); LYMPHOCYTES # (AUTO) 1.9 X 10^3 (1.0-4.0); LYMPHOCYTES % (AUTO) 13 % (12-44); MEAN CORPUSCULAR HEMOGLOBIN 30 PG (25-34); MEAN CORPUSCULAR HGB CONC 33 G/DL (32-36); MEAN CORPUSCULAR VOLUME 89 FL (80-99); MONOCYTES # (AUTO) 1.8 X 10^3 (0.0-1.0); MONOCYTES % (AUTO) 12 % (0-12); NEUTROPHILS # (AUTO) 11.4 X 10^3 (1.8-7.8); NEUTROPHILS % (AUTO) 75 % (42-75); PLATELET COUNT 250 10^3/uL (130-400); WHITE BLOOD COUNT 15.2 10^3/uL (4.3-11.0)
[2019-08-02 07:20] LABS: BUN/CREATININE RATIO 19; CARBON DIOXIDE 21 MMOL/L (21-32); CHLORIDE 107 MMOL/L (98-107); CREATININE SERUM 0.79 MG/DL (0.60-1.30); GFR ESTIMATED > 60; GLUCOSE 118 MG/DL (70-105); POTASSIUM 4.7 MMOL/L (3.6-5.0); SODIUM 138 MMOL/L (135-145)
[2019-08-02 07:25] LABS: BAND NEUTROPHILS 6 %; BASOPHILS % (MANUAL) 0 %; EOSINOPHILS % (MANUAL) 0 %; LYMPHOCYTES % (MANUAL) 11 %; MONOCYTES % (MANUAL) 9 %; NEUTROPHILS % (MANUAL) 74 %
[2019-08-02 07:26] LABS: ELLIPT/OVALOCYTES SLIGHT
[2019-08-02 07:34] VITALS: BP 121/61
[2019-08-02] MEDS: SENNA W/DOCUSATE (SENOKOT S) TABLET PO SCH (08:26)
--- NOTE | 2019-08-02 10:49 | Anesthesia-General Post-Op ---
General Patient Condition Mental Status/LOC: Same as Preop Cardiovascular: Satisfactory Nausea/Vomiting: Absent Respiratory: Satisfactory Pain: Controlled Complications: Absent Post Op Complications Complications None Follow Up Care/Instructions Patient Instructions None needed. Anesthesia/Patient Condition Patient Condition Patient is doing well, no complaints, stable vital signs, no apparent adverse anesthesia problems. No complications reported per nursing. KIMBERLEE TOLBERT CRNA Aug 02, 2019 10:49
--- NOTE | 2019-08-02 11:18 | Progress Note - Urology ---
Progress Note-Urology Progress Notes/Assess & Plan Progress/Assessment & Plan AFEBRILE, VSS. FEELS WELL, WANTS TO START PO INTAKE, PASSING FLATUS. HAD SOME LT SHOULDER AND SIDE PAIN, NO CHEST PAIN, NO SOB, NO NAUSEA, NO DIAPHORESIS. NO PAIN OR TENDER CALVES, URINE CLEAR AND TINGED ON SLOW CBI DRIP. DENIES BLADDER SPASMS. ABDOMEN SOFT NON TENDER. LABS STABLE. Final Diagnosis BPH WITH RETENTION SP SPP PROSTATECTOMY LEE BROWN MD Aug 02, 2019 11:18
[2019-08-02 12:58] VITALS: BP 142/78
[2019-08-02] MEDS: cefTRIAXone FOR IV USE 2,000 MG in WATER (STERILE) FOR INJECTION 20 ML IV SCH (14:59)
[2019-08-02 16:00] VITALS: BP 133/74
[2019-08-02] MEDS: NS IV 1000 ML 1,000 ML IV SCH (17:32)
[2019-08-02 19:25] VITALS: BP 137/75
[2019-08-02] MEDS: diphenhydrAMINE 50 MG/ML INJ (BENADRYL) IV PRN (21:03)
[2019-08-02] MEDS: ZOLPIDEM 5 MG (AMBIEN) TAB PO PRN (21:05)
[2019-08-03 00:42] VITALS: BP 152/87
[2019-08-03] MEDS: fentaNYL INJECTION 1,000 MCG in NS (IVPB) 80 ML IV SCH (02:35)
[2019-08-03] MEDS: diphenhydrAMINE 50 MG/ML INJ (BENADRYL) IV PRN (02:36)
[2019-08-03 03:36] VITALS: BP 149/88
[2019-08-03 05:12] LABS: BASOPHILS % (AUTO) 0 % (0-10); EOSINOPHILS % (AUTO) 0 % (0-10); HEMATOCRIT 34 % (40-54); HEMOGLOBIN 11.1 G/DL (13.3-17.7); LYMPHOCYTES # (AUTO) 1.5 X 10^3 (1.0-4.0); LYMPHOCYTES % (AUTO) 11 % (12-44); MEAN CORPUSCULAR HEMOGLOBIN 29 PG (25-34); MEAN CORPUSCULAR HGB CONC 33 G/DL (32-36); MEAN CORPUSCULAR VOLUME 90 FL (80-99); MONOCYTES # (AUTO) 1.6 X 10^3 (0.0-1.0); MONOCYTES % (AUTO) 11 % (0-12); NEUTROPHILS # (AUTO) 11.3 X 10^3 (1.8-7.8); NEUTROPHILS % (AUTO) 78 % (42-75); PLATELET COUNT 237 10^3/uL (130-400); RED CELL DISTRIBUTION WIDTH 12.9 % (10.0-14.5); WHITE BLOOD COUNT 14.4 10^3/uL (4.3-11.0)
[2019-08-03 05:28] LABS: BUN/CREATININE RATIO 16; CALCIUM 8.1 MG/DL (8.5-10.1); CARBON DIOXIDE 21 MMOL/L (21-32); CHLORIDE 103 MMOL/L (98-107); CREATININE SERUM 0.67 MG/DL (0.60-1.30); GFR ESTIMATED > 60; GLUCOSE 110 MG/DL (70-105); POTASSIUM 3.9 MMOL/L (3.6-5.0); SODIUM 134 MMOL/L (135-145)
[2019-08-03 06:09] LABS: LYMPHOCYTES % (MANUAL) 10 %; MONOCYTES % (MANUAL) 12 %; NEUTROPHILS % (MANUAL) 78 %
[2019-08-03 08:00] VITALS: BP 153/80
--- NOTE | 2019-08-03 09:55 | Progress Note - Urology ---
Progress Note-Urology Progress Notes/Assess & Plan Progress/Assessment & Plan CONTINUES WELL. COMPLAINS OF INSOMNIA. NO PAINS. PASSING A LOT OF FLATUS AND TOLERATES PO WELL. URINE CRYSTAL CLEAR. HEMOVAC DECREASED. LABS STABLE. ABDOMEN SOFT. PLAN PER ORDERS Final Diagnosis BPH WITH RETENTION POST SPP LEE BROWN MD Aug 03, 2019 09:55
[2019-08-03] MEDS: SENNA W/DOCUSATE (SENOKOT S) TABLET PO SCH (10:00)
[2019-08-03] MEDS ORDERED: PATIENT MAY USE OWN MEDS, ALL MC SCH (11:30)
[2019-08-03 12:00] VITALS: BP 138/81
--- NOTE | 2019-08-03 12:48 | Physical Therapy Evaluation ---
PT Evaluation-General Medical Diagnosis Admission Date Aug 01, 2019 at 05:54 Medical Diagnosis: BPH/retention Onset Date: Aug 01, 2019 Therapy Diagnosis Therapy Diagnosis: generalized weakness/debility Precautions Precautions/Isolations: Fall Prevention, Standard Precautions Referral Physician: Nish Reason for Referral: Evaluation/Treatment Medical History Additional Medical History benign prostatic hyperpla Current History s/p lap Reviewed History: Yes Social History Home: Single Level Current Living Status: Spouse Prior Prior Level of Function SCALE: Activities may be completed with or without assistive devices. 8-Rjijprvqam-iajgucx completes the activity by him/herself with no assistance from a helper. 5-Set-up or Clean-up Assistance-helper sets up or cleans up; patient completes activity. [place] assists only prior to or following the activity. 4-Supervision or Touching Assistance-helper provides verbal cues and/or touching/steadying and/or contact guard assistance as patient completes activit y. Assistance may be provided throughout the activity or intermittently. 3-Partial/Moderate Assistance-helper does LESS THAN HALF the effort. [place] lifts, holds or supports trunk or limbs, but provides less than half the effort. 2-Substantial/Maximal Assistance-helper does MORE THAN HALF the effort. [place] lifts or holds trunk or limbs and provides more than half the effort. 1-Tfcbhubng-ampxcb does ALL the effort. Patient does none of the effort to complete the activity. Or, the assistance of 2 or more helpers is required for the patient to complete the activity. If activity was not attempted, code reason: 7-Patient Refused. 9-Not Applicable-not attempted and the patient did not perform the activity before the current illness, exacerbation or injury. 10-Not Attempted due to Environmental Limitations-(lack of equipment, weather restraints, etc.). 88-Not Attempted due to Medical Conditions or Safety Concerns. Bed Mobility: 6 Transfers (B,C,W/C): 6 Gait: 6 Stairs: 6 Indoor Mobility (Ambulation): Independent Stairs: Independent Prior Devices Use: None PT Evaluation-Current Subjective Patient agrees to PT. Family present Pain Numeric Pain Scale: 10-Worst Possible Pain Location: Lower Location Body Site: Abdomen Pain Description: Acute Objective Patient Orientation: Normal For Age Attachments: Drains, Duke Catheter, IV ROM/Strength ROM Lower Extremities bilateral LE WFL Strength Lower Extremities 3/5 grossly bilateral LE Integumentary/Posture Integumentary refer to nursing notes Bladder Incontinence: Duke Cath Posture trunk flexed posture due to pain Neuromuscular (Tone, Coordination, Reflexes) grossly intact Sensory Vision: Functional Hearing: Functional Sensation Right Lower Extremit: Intact Sensation Left Lower Extremity: Intact Transfers Roll Left to Right (QC): 3 Sit to Lying (QC): 3 Lying to Sitting/Side of Bed(Q: 3 Sit to Stand (QC): 3 Chair/Xkn-al-Ioshq Xfer(QC): 3 Gait Does the Patient Walk?: Yes Mode of Locomotion: Walk Anticipated Mode of Locomotion: Walk Walk 10 feet (QC): 3 Distance: 20' Gait Assistive Device: FWW Comments/Gait Description slow, steady gait sequence Balance Sitting Static: Normal Sitting Dynamic: Normal Standing Static: Fair Standing Dynamic: Fair Assessment/Needs 78 y.o. male, will benefit from skilled PT to address functional strength and mobility to improve current LOF to safely return to home with family at maximum LOF. Rehab Potential: Fair PT Sericulture Teacher Goals Sericulture Teacher Goals PT Retirement Goals Time Frame: Aug 11, 2019 Roll Left & Right (QC): 6 Sit to Lying (QC): 6 Lying-Sitting on Side/Bed(QC): 6 Sit to Stand (QC): 6 Chair/Xgq-ad-Ufpeo Xfer(QC): 6 Toilet Transfer (QC): 6 Car Transfer (QC): 6 Does the Patient Walk: Yes Walk 10 feet (QC): 6 Walk 50ft with 2 Turns (QC): 6 Walk 150 ft (QC): 6 PT Plan Problem List Problem List: Activity Tolerance, Functional Strength, Other (pain control) Treatment/Plan Treatment Plan: Continue Plan of Care Treatment Plan: Bed Mobility, Education, Functional Activity Brynn, Functional Strength, Gait, Safety, Therapeutic Exercise, Transfers Treatment Duration: Aug 11, 2019 Frequency: 6 times per week Estimated Hrs Per Day: .25 hour per day Patient and/or Family Agrees t: Yes Time/GCodes Time In: 1135 Time Out: 1150 Total Billed Treatment Time: 15 Total Billed Treatment 1 visit EVModC 15 min ANGELICA CRUZ PT Aug 03, 2019 12:48
[2019-08-03 15:31] VITALS: BP 124/71
[2019-08-03] MEDS: cefTRIAXone FOR IV USE 2,000 MG in WATER (STERILE) FOR INJECTION 20 ML IV SCH (17:00)
[2019-08-03 19:55] VITALS: BP 110/69
[2019-08-03] MEDS: ACETAMINOPHEN PO SCH (20:43)
[2019-08-03] MEDS: DIPHENHYDRAMINE PO SCH (20:43)
[2019-08-04 00:50] VITALS: BP 138/80
[2019-08-04 04:40] VITALS: BP 132/73
[2019-08-04] MEDS: NS IV 1000 ML 1,000 ML IV SCH (05:19)
[2019-08-04 08:00] VITALS: BP 122/92
[2019-08-04] MEDS: SENNA W/DOCUSATE (SENOKOT S) TABLET PO SCH (09:13)
--- NOTE | 2019-08-04 09:31 | Physical Therapy Daily Note ---
PT Daily Note-Current Subjective Patient agrees to PT. Pain Numeric Pain Scale: 10-Worst Possible Pain Location: Lower Location Body Site: Abdomen Pain Description: Acute Mental Status Patient Orientation: Normal For Age Attachments: Duke Catheter, IV Transfers SCALE: Activities may be completed with or without assistive devices. 4-Evioyeburk-jjgvggp completes the activity by him/herself with no assistance from a helper. 5-Set-up or Clean-up Assistance-helper sets up or cleans up; patient completes activity. [place] assists only prior to or following the activity. 4-Supervision or Touching Assistance-helper provides verbal cues and/or t ouching/steadying and/or contact guard assistance as patient completes activity. Assistance may be provided throughout the activity or intermittently. 3-Partial/Moderate Assistance-helper does LESS THAN HALF the effort. [place] lifts, holds or supports trunk or limbs, but provides less than half the effort. 2-Substantial/Maximal Assistance-helper does MORE THAN HALF the effort. [place] lifts or holds trunk or limbs and provides more than half the effort. 1-Jwpramrpo-mwxpco does ALL the effort. Patient does none of the effort to complete the activity. Or, the assistance of 2 or more helpers is required for the patient to complete the activity. If activity was not attempted, code reason: 7-Patient Refused. 9-Not Applicable-not attempted and the patient did not perform the activity before the current illness, exacerbation or injury. 10-Not Attempted due to Environmental Limitations-(lack of equipment, weather restraints, etc.). 88-Not Attempted due to Medical Conditions or Safety Concerns. Roll Left & Right (QC): 3 Sit to Lying (QC): 3 Lying to Sitting/Side of Bed(Q: 3 Sit to Stand (QC): 3 Chair/Eti-aw-Jexeb Xfer(QC): 3 Gait Training Does the Patient Walk?: Yes Distance: 20' x 2 Walk 10 feet (QC): 3 Gait Assistive Device: FWW Patient had increase c/o dizziness with sit to stand and upright position. This limited patient's mobility Exercises Seated Therapy Exercises: Ankle pumps, Long arc quads Seated Reps: 15 Assessment Patient tolerated treatment well and is up in recliner with needs met and family present. PT Hydrologist Goals Hydrologist Goals PT Hydrologist Goals Time Frame: Aug 11, 2019 Roll Left & Right (QC): 6 Sit to Lying (QC): 6 Lying-Sitting on Side/Bed(QC): 6 Sit to Stand (QC): 6 Chair/Ndg-dj-Idebu Xfer(QC): 6 Toilet Transfer (QC): 6 Car Transfer (QC): 6 Does the Patient Walk: Yes Walk 10 feet (QC): 6 Walk 50ft with 2 Turns (QC): 6 Walk 150 ft (QC): 6 PT Plan Treatment/Plan Treatment Plan: Continue Plan of Care Treatment Plan: Bed Mobility, Education, Functional Activity Brynn, Functional Strength, Gait, Safety, Therapeutic Exercise, Transfers Treatment Duration: Aug 11, 2019 Frequency: 6 times per week Estimated Hrs Per Day: .25 hour per day Patient and/or Family Agrees t: Yes Time/GCodes Time In: 837 Time Out: 853 Total Billed Treatment Time: 16 Total Billed Treatment 1 visit FA 16 min ANGELICA CRUZ PT Aug 04, 2019 09:31
--- NOTE | 2019-08-04 10:13 | Progress Note - Urology ---
Progress Note-Urology Progress Notes/Assess & Plan Progress/Assessment & Plan FEELING BETTER. NO PAINS. SLEPT WELL. NO BM YET. PATH BPH. URINE TINGED OFF CBI. Final Diagnosis BPH WITH RETENTION POST SPP LEE BROWN MD Aug 04, 2019 10:13
[2019-08-04 12:00] VITALS: BP 117/67
[2019-08-04] MEDS: cefTRIAXone FOR IV USE 2,000 MG in WATER (STERILE) FOR INJECTION 20 ML IV SCH (14:51)
[2019-08-04 15:54] VITALS: BP 109/71
[2019-08-04 19:35] VITALS: BP 114/67
[2019-08-04] MEDS: DIPHENHYDRAMINE PO SCH (21:28)
[2019-08-04] MEDS: ACETAMINOPHEN PO SCH (21:28)
[2019-08-05 00:05] VITALS: BP 113/68
[2019-08-05 04:00] VITALS: BP 120/88
[2019-08-05 08:00] VITALS: BP 121/75
[2019-08-05] MEDS: SENNA W/DOCUSATE (SENOKOT S) TABLET PO SCH (09:22)
[2019-08-05 12:00] VITALS: BP 120/73
[2019-08-05] MEDS: cefTRIAXone FOR IV USE 2,000 MG in WATER (STERILE) FOR INJECTION 20 ML IV SCH (14:39)
[2019-08-05] MEDS: NS IV 1000 ML 1,000 ML IV SCH (14:39)
--- NOTE | 2019-08-05 15:29 | Progress Note - Urology ---
Progress Note-Urology Progress Notes/Assess & Plan Progress/Assessment & Plan BETTER AND BETTER EVERY DAY. DC IV. MOM IF NO BM BY THIS EVENING Final Diagnosis BPH WITH RETENTION LEE BROWN MD Aug 05, 2019 15:29
[2019-08-05] MEDS ORDERED: MILK OF MAGNESIA 400 MG/5 ML 30 ML UDC PO NR (15:30)
[2019-08-05 16:32] VITALS: BP 138/80
--- NOTE | 2019-08-05 17:00 | NUR ---
IV FLUIDS STOPPED AND BUTTON SPINDLER DISCONTINUED. 60ML FENTANYL WASTED FROM BUTTON SPINDLER.
[2019-08-05 20:15] VITALS: BP 110/67
[2019-08-05] MEDS: ACETAMINOPHEN PO SCH (21:11)
[2019-08-05] MEDS: DIPHENHYDRAMINE PO SCH (21:11)
[2019-08-06] VITALS (7 sets, daily range): BP systolic 107–136; BP diastolic 64–78
[2019-08-06] MEDS: SENNA W/DOCUSATE (SENOKOT S) TABLET PO SCH (08:24)
--- NOTE | 2019-08-06 09:24 | Progress Note - Urology ---
Progress Note-Urology Progress Notes/Assess & Plan Progress/Assessment & Plan CONTINUES WELL. URINE CLEAR. HAD BM YESTERDAY. PLAN PER ORDERS Final Diagnosis BPH WITH RETENTION LEE BROWN MD Aug 06, 2019 09:24
--- NOTE | 2019-08-06 11:22 | Physical Therapy Daily Note ---
PT Daily Note-Current Subjective Patient up in recliner and agrees to PT. Pain Numeric Pain Scale: 5-Moderate Pain Location: Lower Location Body Site: Abdomen Pain Description: Acute Mental Status Patient Orientation: Normal For Age Attachments: Drains, Duke Catheter Transfers SCALE: Activities may be completed with or without assistive devices. 3-Aergxmguhc-guypmxl completes the activity by him/herself with no assistance from a helper. 5-Set-up or Clean-up Assistance-helper sets up or cleans up; patient completes a ctivity. [place] assists only prior to or following the activity. 4-Supervision or Touching Assistance-helper provides verbal cues and/or touching/steadying and/or contact guard assistance as patient completes activity. Assistance may be provided throughout the activity or intermittently. 3-Partial/Moderate Assistance-helper does LESS THAN HALF the effort. [place] lifts, holds or supports trunk or limbs, but provides less than half the effort. 2-Substantial/Maximal Assistance-helper does MORE THAN HALF the effort. [place] lifts or holds trunk or limbs and provides more than half the effort. 1-Mdtyumcqo-vkxdxx does ALL the effort. Patient does none of the effort to complete the activity. Or, the assistance of 2 or more helpers is required for the patient to complete the activity. If activity was not attempted, code reason: 7-Patient Refused. 9-Not Applicable-not attempted and the patient did not perform the activity before the current illness, exacerbation or injury. 10-Not Attempted due to Environmental Limitations-(lack of equipment, weather restraints, etc.). 88-Not Attempted due to Medical Conditions or Safety Concerns. Roll Left & Right (QC): 5 Lying to Sitting/Side of Bed(Q: 5 Sit to Stand (QC): 5 Chair/Zqh-jq-Qulcv Xfer(QC): 5 Gait Training Does the Patient Walk?: Yes Distance: 225' Walk 10 feet (QC): 4 Walk 50 ft with 2 Turns(QC): 4 Walk 150 ft (QC): 4 Gait Assistive Device: FWW very slow, steady gait sequence Assessment Patient returned to bed with needs met. Patient is improving with treatment plan and is encouraged to increase activity independently. Family present and also educated. PT Group Home Goals Group Home Goals PT Group Home Goals Time Frame: Aug 11, 2019 Roll Left & Right (QC): 6 Sit to Lying (QC): 6 Lying-Sitting on Side/Bed(QC): 6 Sit to Stand (QC): 6 Chair/Pfj-bz-Zbxym Xfer(QC): 6 Toilet Transfer (QC): 6 Car Transfer (QC): 6 Does the Patient Walk: Yes Walk 10 feet (QC): 6 Walk 50ft with 2 Turns (QC): 6 Walk 150 ft (QC): 6 PT Plan Treatment/Plan Treatment Plan: Continue Plan of Care Treatment Plan: Bed Mobility, Education, Functional Activity Brynn, Functional Strength, Gait, Safety, Therapeutic Exercise, Transfers Treatment Duration: Aug 11, 2019 Frequency: 6 times per week Estimated Hrs Per Day: .25 hour per day Patient and/or Family Agrees t: Yes Time/GCodes Time In: 1045 Time Out: 1057 Total Billed Treatment Time: 12 Total Billed Treatment 1 visit FA 12 min ANGELICA CRUZ PT Aug 06, 2019 11:22
--- NOTE | 2019-08-06 14:04 | NUR ---
RD ASSESSMENT PMHx: s/p prostatectomy; BPH PT INTERACTION: Pt was awake and very pleasant during nutrition assessment. Pt states current appetite "isn't the greatest" and has been this way for two months. Pt attributes poor appetite to string of illnesses starting before 2018. Note avg PO intake of 35% x3d, per chart review. Pt states following a regular diet at home and has no issues with chewing/swallowing food. Pt states no recent issues with n/v at this time. Pt states some recent episodes with diarrhea, and that his last BM was 08/05. Note pt currently on bowel regimen of senna qd, per chart review. Pt states recent 9# wt loss x2mon. Note unable to determine recent wt hx, per chart review. ABNORMAL NUTRITION-RELATED LAB VALUES LOW: Na 134; Ca 8.1 HIGH: glu 110 Est. kcal needs: 2523-1995 kcal | 25-30 kcal/kg Est. Pro needs: 91-109 g Pro | 1.0-1.2 g Pro/kg PES STATEMENT: Inadequate oral intake (NI-2.1) related to loss of appetite | diarrhea as evidenced by pt interview | avg PO intake 35% x3d INTERVENTION: Continue with current diet order of Regular diet. Add Ensure Enlive (vary) to meals TID. Provides 350 kcal and 13 g Pro per serving. Will continue to follow and reassess as pt needs and status change. MONITOR/EVALUATE: PO Intake; Plan of Care; Hydration Status; Weight Status; Lab Values Bella Chinchilla, MS, RD, LD
--- NOTE | 2019-08-06 15:30 | NUR ---
Suprapublic tube d/c'd at this time per orders. 12mL of fluid aspirated from balloon. Patient tolerated procedure well. Patient has also ambulated in halls 3 times this shift thus far. Patient also had large BM this shift.
--- NOTE | 2019-08-06 16:13 | NUR ---
CM/SS spoke with the patient for discharge planning. The patient and the patients daughter were present in the room. The patient was on the phone but the daughter was willing to discuss discharge planning. Plan: The patient will return home. The patients daughter verbalized that he does not have any needs at this time such as medical equipment or assistance in the home. The patients daughter reports that he does have a and they both live at home still. Family is available to help the patient if needed. The patient states he believes it will be a few days before he discharges.
[2019-08-06] MEDS: ACETAMINOPHEN PO SCH (20:29)
[2019-08-06] MEDS: DIPHENHYDRAMINE PO SCH (20:29)
[2019-08-07 04:00] VITALS: BP 103/59
[2019-08-07 08:00] VITALS: BP 123/61
--- NOTE | 2019-08-07 08:30 | Progress Note - Urology ---
Progress Note-Urology Progress Notes/Assess & Plan Progress/Assessment & Plan HAVING SOME BACK PAIN, OTHERWISE NO COMPLAINTS. HEMOVAC 5CC OVERNIGHT. URINE CLEAR. PLAN PER ORDERS Final Diagnosis BPH WITH RETENTION LEE BROWN MD Aug 07, 2019 08:30
[2019-08-07] MEDS: SENNA W/DOCUSATE (SENOKOT S) TABLET PO SCH (09:09)
[2019-08-07 12:00] VITALS: BP 110/55
--- NOTE | 2019-08-07 12:12 | Physical Therapy Daily Note ---
PT Daily Note-Current Subjective Patient is agreeable to therapy today. Patient is fatigued from not sleeping well tonight. Patient reports minimal pain at this time. Appearance Patient in recliner with feet up, bedside table and call light within reach. Mental Status Patient Orientation: Person, Place, Time, Situation Transfers SCALE: Activities may be completed with or without assistive devices. 9-Hytihvucau-bcoeafk completes the activity by him/herself with no assistance from a helper. 5-Set-up or Clean-up Assistance-helper sets up or cleans up; patient completes activity. [place] assists only prior to or following the activity. 4-Supervision or Touching Assistance-helper provides verbal cues and/or touching/steadying and/or contact guard assistance as patient completes activity. Assistance may be provided throughout the activity or intermittently. 3-Partial/Moderate Assistance-helper does LESS THAN HALF the effort. [place] lifts, holds or supports trunk or limbs, but provides less than half the effort. 2-Substantial/Maximal Assistance-helper does MORE THAN HALF the effort. [place] lifts or holds trunk or limbs and provides more than half the effort. 5-Piaqoeqpt-eqjmux does ALL the effort. Patient does none of the effort to complete the activity. Or, the assistance of 2 or more helpers is required for the patient to complete the activity. If activity was not attempted, code reason: 7-Patient Refused. 9-Not Applicable-not attempted and the patient did not perform the activity before the current illness, exacerbation or injury. 10-Not Attempted due to Environmental Limitations-(lack of equipment, weather restraints, etc.). 88-Not Attempted due to Medical Conditions or Safety Concerns. Sit to Stand (QC): 4 CGA for safety. Gait Training Does the Patient Walk?: Yes Distance: 75' Walk 10 feet (QC): 4 Walk 50 ft with 2 Turns(QC): 4 Gait Persons Needed: 1 Gait Assistive Device: FWW CGA for safety. Wheelchair Training Does the Pt Use a Wheelchair?: No Assessment Patient is slow and steady during ambulation. Patient fatigued quickly and requi red frequent rest breaks. Patient started to feel lightheaded during ambulation which receded once sitting again. Patient ceased therapy due to fatigue. PT Senior Care Goals Ornamental Plaster Sticker Goals PT Senior Care Goals Time Frame: Aug 11, 2019 Roll Left & Right (QC): 6 Sit to Lying (QC): 6 Lying-Sitting on Side/Bed(QC): 6 Sit to Stand (QC): 6 Chair/Jvn-mi-Uymjv Xfer(QC): 6 Toilet Transfer (QC): 6 Car Transfer (QC): 6 Does the Patient Walk: Yes Walk 10 feet (QC): 6 Walk 50ft with 2 Turns (QC): 6 Walk 150 ft (QC): 6 PT Plan Problem List Problem List: Activity Tolerance, Functional Strength, Safety, Balance, Gait, Transfer, Bed Mobility, ROM Treatment/Plan Treatment Plan: Continue Plan of Care Treatment Plan: Bed Mobility, Education, Functional Activity Brynn, Functional Strength, Gait, Safety, Therapeutic Exercise, Transfers Treatment Duration: Aug 11, 2019 Frequency: 6 times per week Estimated Hrs Per Day: .25 hour per day Patient and/or Family Agrees t: Yes Safety Risks/Education Patient Education: Gait Training, Transfer Techniques Teaching Recipient: Patient Teaching Methods: Discussion Response to Teaching: Reinforcement Needed Time/GCodes Time In: 1127 Time Out: 1139 Total Billed Treatment Time: 12 Total Billed Treatment 1 visit FA (12 minutes) ANGELICA CRUZ PT Aug 07, 2019 12:11
[2019-08-07 16:07] VITALS: BP 136/80
[2019-08-07] MEDS: DIPHENHYDRAMINE PO SCH (20:21)
[2019-08-07] MEDS: ACETAMINOPHEN PO SCH (20:21)
[2019-08-07 20:26] VITALS: BP 131/76
[2019-08-07] MEDS ORDERED: MILK OF MAGNESIA 400 MG/5 ML 30 ML UDC PO ONE (22:45)
[2019-08-08 00:58] VITALS: BP 113/66
[2019-08-08 04:00] VITALS: BP 110/66
--- NOTE | 2019-08-08 06:58 | Progress Note - Urology ---
Progress Note-Urology Progress Notes/Assess & Plan Progress/Assessment & Plan VOIDING WELL. EMPTIES WELL, GOOD STREAM AND CONTROL, URINE TINGED. BACK PAIN BETTER. FEELS A LITTLE WEAK. PLAN PER ORDERS Final Diagnosis RETENTION LEE BROWN MD Aug 08, 2019 06:58
[2019-08-08 07:24] LABS: BASOPHILS % (AUTO) 0 % (0-10); EOSINOPHILS # (AUTO) 0.2 10^3/uL (0.0-0.3); EOSINOPHILS % (AUTO) 2 % (0-10); HEMATOCRIT 33 % (40-54); HEMOGLOBIN 10.8 G/DL (13.3-17.7); LYMPHOCYTES # (AUTO) 2.2 X 10^3 (1.0-4.0); LYMPHOCYTES % (AUTO) 21 % (12-44); MEAN CORPUSCULAR HEMOGLOBIN 30 PG (25-34); MEAN CORPUSCULAR HGB CONC 33 G/DL (32-36); MEAN CORPUSCULAR VOLUME 89 FL (80-99); MEAN PLATELET VOLUME 9.5 FL (7.4-10.4); MONOCYTES % (AUTO) 10 % (0-12); NEUTROPHILS # (AUTO) 6.8 X 10^3 (1.8-7.8); NEUTROPHILS % (AUTO) 67 % (42-75); PLATELET COUNT 251 10^3/uL (130-400); WHITE BLOOD COUNT 10.2 10^3/uL (4.3-11.0)
[2019-08-08 07:45] LABS: BUN/CREATININE RATIO 18; CALCIUM 8.3 MG/DL (8.5-10.1); CARBON DIOXIDE 25 MMOL/L (21-32); CHLORIDE 101 MMOL/L (98-107); CREATININE SERUM 0.68 MG/DL (0.60-1.30); GFR ESTIMATED > 60; GLUCOSE 107 MG/DL (70-105); POTASSIUM 4.5 MMOL/L (3.6-5.0); SODIUM 136 MMOL/L (135-145)
[2019-08-08 08:00] VITALS: BP 126/76
[2019-08-08] MEDS: SENNA W/DOCUSATE (SENOKOT S) TABLET PO SCH (08:47)
--- NOTE | 2019-08-08 11:06 | Physical Therapy Daily Note ---
PT Daily Note-Current Subjective Pt. initially declines Rx as he is about to get on BSC. 2nd attempt pt is agreeable and wants to walk but slow. Pt. states he is better and "grateful to hear I dont have cancer" No c/o pain Pain Location: No Pain Reported Mental Status Patient Orientation: Normal For Age Transfers SCALE: Activities may be completed with or without assistive devices. 1-Anucsligtx-mshztup completes the activity by him/herself with no assistance from a helper. 5-Set-up or Clean-up Assistance-helper sets up or cleans up; patient completes activity. Bynum assists only prior to or following the activity. 4-Supervision or Touching Assistance-helper provides verbal cues and/or touching/steadying and/or contact guard assistance as patient completes activity. Assistance may be provided throughout the activity or intermittently. 3-Partial/Moderate Assistance-helper does LESS THAN HALF the effort. Bynum lifts, holds or supports trunk or limbs, but provides less than half the effort. 2-Substantial/Maximal Assistance-helper does MORE THAN HALF the effort. Bynum lifts or holds trunk or limbs and provides more than half the effort. 5-Iwgwjxnzb-lbggpu does ALL the effort. Patient does none of the effort to complete the activity. Or, the assistance of 2 or more helpers is required for the patient to complete the activity. If activity was not attempted, code reason: 7-Patient Refused. 9-Not Applicable-not attempted and the patient did not perform the activity before the current illness, exacerbation or injury. 10-Not Attempted due to Environmental Limitations-(lack of equipment, weather restraints, etc.). 88-Not Attempted due to Medical Conditions or Safety Concerns. Sit to Stand (QC): 5 Gait Training Does the Patient Walk?: Yes Walk 150 ft (QC): 5 Gait Persons Needed: 1 Gait Assistive Device: FWW slow, careful, moderate wt bearing on FWW, some fatigue, no SOB, slightly guarded 250 ft Exercises Seated Therapy Exercises: Ankle pumps, Sit to stand, Long arc quads Seated Reps: 12 Treatments up in chair after Rx with call mckee and family Assessment Current Status: Good Progress PT Mobility Scooter Repairer Goals Mobility Scooter Repairer Goals PT Correction Goals Time Frame: Aug 11, 2019 Roll Left & Right (QC): 6 Sit to Lying (QC): 6 Lying-Sitting on Side/Bed(QC): 6 Sit to Stand (QC): 6 Chair/Vjc-px-Epfwq Xfer(QC): 6 Toilet Transfer (QC): 6 Car Transfer (QC): 6 Does the Patient Walk: Yes Walk 10 feet (QC): 6 Walk 50ft with 2 Turns (QC): 6 Walk 150 ft (QC): 6 PT Plan Treatment/Plan Treatment Plan: Continue Plan of Care Treatment Plan: Bed Mobility, Education, Functional Activity Brynn, Functional Strength, Gait, Safety, Therapeutic Exercise, Transfers Treatment Duration: Aug 11, 2019 Frequency: 6 times per week Estimated Hrs Per Day: .25 hour per day Patient and/or Family Agrees t: Yes Safety Risks/Education Patient Education: Gait Training, Transfer Techniques, Correct Positioning, Disease Process, Safety Issues Teaching Recipient: Patient Teaching Methods: Demonstration, Discussion Response to Teaching: Verbalize Understanding, Return Demonstration Time/GCodes Time In: 1035 Time Out: 1055 Total Billed Treatment Time: 20 Total Billed Treatment 1,GT20m JEREL SANCHEZ SHOWER ENCLOSURE INSTALLER Aug 08, 2019 11:06
--- NOTE | 2019-08-08 11:11 | NUR ---
DISCHARGE PLANNING: Spoke with regarding discharge plan for the patient. He indicated he plans to discharge tomorrow but the patient had mentioned being weak so he ordered labs. He also reports having pulled drain yesterday and taking staple out tomorrow before discharge.
[2019-08-08 12:00] VITALS: BP 125/60
--- NOTE | 2019-08-08 15:23 | NUR ---
Pastoral care visit.
[2019-08-08 16:05] VITALS: BP 118/70
[2019-08-08] MEDS: DIPHENHYDRAMINE PO SCH (20:19)
[2019-08-08] MEDS: ACETAMINOPHEN PO SCH (20:19)
[2019-08-09] VITALS: BP 102/64
[2019-08-09 08:00] VITALS: BP 114/71
--- NOTE | 2019-08-09 08:00 | NUR ---
ADMITS TO CHRONIC BACK PAIN, NO OTHER COMPLAINTS. DAUGHTER AT BEDSIDE. DAUGHTER STATES WILL BE STAYING WITH HIM ON DISCHARGE. PATIENT ADMITS TO SOME INCONTINENCY AND NEEDS TO WEAR BRIEFS, BUT FEELS HE IS EMPTYING BLADDER. 3 GLASS TEST CONTINUES WITH URINE REDDISH-BROWN.
[2019-08-09] MEDS: SENNA W/DOCUSATE (SENOKOT S) TABLET PO SCH (08:26)
--- NOTE | 2019-08-09 11:03 | Discharge Inst-Urology ---
Discharge Inst-Urology Reconcile Patient Problems Problems Reviewed?: Yes Final Diagnosis BPH WITH PROSTATISM AND RETENTION Patient Instructions/Follow Up Plan/Assessment/Instructions Discharge after removing messi. Please make appointment to been seen in office in 3 weeks. Rest till then Rx for Tramadol given to Stay off Proscar and Flomax Showers no bath Keep bowels soft and moving Diet as tolerated. If questions or concerns contact your physician Or seek help at emergency department. LEE BRONW MD Aug 09, 2019 11:03
--- NOTE | 2019-08-09 11:14 | Physical Therapy Progress Note ---
Therapy Progress Note Patient states he is discharging today and heading home. Due to that patient declined therapy. ANGELICA CRUZ PT Aug 09, 2019 11:14
--- NOTE | 2019-08-09 11:30 | NUR ---
32 SENDY REMOVED FROM ABDOMINAL MIDLINE INCISION AND STERI STRIPS APPLIED. STILL SOME DRAINAGE FROM INCISION AND WHERE CAROL DRAIN WAS REMOVED ON RLQ OF ABDOMEN AND 4X4 PLACED.
[2019-08-09 15:03] VITALS: BP 114/71
--- NOTE | 2019-08-10 04:06 | DISCHARGE SUMMARY ---
DATE OF SERVICE: CONDITION ON DISCHARGE: Satisfactory. ADMITTING DIAGNOSES: Benign prostatic hypertrophy with prostatism and retention. DISCHARGE DIAGNOSES: Benign prostatic hypertrophy with prostatism and retention. OPERATION PERFORMED: Suprapubic prostatectomy on 08/01/2019. SUMMARY: A 78-year-old white man with history of prostatism, BPH, and retention refractory to full medical treatment, admitted to the hospital. History and physical as dictated. HOSPITAL COURSE: The patient underwent above-mentioned surgery on . His postoperative course was satisfactory. His labs remained stable. He was gradually started on diet and advanced as tolerated. The suprapubic tube was removed on the fourth postoperative day, the Duke catheter on the fifth; and the drain, which did not have much in it, on the sixth. The patient was kept in because he felt some weakness on the seventh postoperative day with the lab work that were stable and he improved; and on the eighth day, he was dismissed home with all the instructions as written. He was given a prescription for tramadol. Job ID: [id number] DocumentID: [id number] Dictated Date: 08/09/2019 11:05:31 Planer Setup Operator Date: 08/10/2019 04:05:45 Dictated By: LEE BROWN MD
== END 2019-08-09 13:00 | disposition home or self-care (01) | DRG 707 ==
LOC: 4TH 05:54 → SURG 05:55 → 4TH 11:46
PROVIDERS: ADMIT Urology; ATTEND Urology
PROC: 0VT00ZZ Resection of Prostate, Open Approach (ICD-10-PCS; principal; 2019-08-01 07:25)
DX: N40.1 Benign prostatic hyperplasia with lower urinary tract symptoms (principal); R33.9 Retention of urine, unspecified; D62 Acute posthemorrhagic anemia; B02.29 Other postherpetic nervous system involvement; G47.00 Insomnia, unspecified
CPT/HCPCS: 36415; 80048; 85007; 85025; 85027; 86850; 86900; 86901; 87081; 88307; 93005; 94760

== ENCOUNTER 2019-09-18 06:59 | Emergency (ER) | payer MEDICARE, OTHER ==
[~2019-09-18] VITALS: Ht 185 cm; Wt 89.1 kg
--- NOTE | 2019-09-18 07:18 | ED General ---
General Stated Complaint: POST OP SURGERY ISSUES(PROSTATE) Source of Information: Patient, Family History of Present Illness Date Seen by Provider: Sep 18, 2019 Time Seen by Provider: 07:18 Initial Comments 78-year-old male presents with difficulty urinating. Patient reports that on July 24 he had prostate surgery. Patient has been doing well since then. Patient reports however that during the night he went to urinate and had 3 large blood clots. Since then he has been unable to urinate. He now has quite a bit of pain in his bladder area. He does not have any fevers, chills, nausea or vomiting. Allergies and Home Medications Allergies Coded Allergies: No Known Drug Allergies (Unverified , 07/27/19) Home Medications Gabapentin 300 Mg Capsule, 300 MG PO HS, (Reported) Patient Home Medication List Home Medication List Reviewed: Yes Review of Systems Review of Systems Constitutional: No chills, No fever Respiratory: no symptoms reported Gastrointestinal: No diarrhea, No nausea, No vomiting Genitourinary: see HPI, hematuria, pain Musculoskeletal: no symptoms reported Skin: no symptoms reported Past Eryvdnv-Weezoa-Chcsxr Hx Past Med/Social Hx: Reviewed Nursing Past Med/Soc Hx Patient Social History Former Smoker, Quit: Jul 27, 1989 2nd Hand Smoke Exposure: Yes Recent Hopitalizations: No Immunizations Up To Date Date of Influenza Vaccine: Apr 23, 2019 Seasonal Allergies Seasonal Allergies: No Past Medical History Surgeries: Yes Prostatectomy, Tonsillectomy Respiratory: No Cardiac: No Neurological: No Neuropathy Sexually Transmitted Disease: No HIV/AIDS: No Genitourinary: Yes Benign Prostatic Hyperpl, Prostate Problems Gastrointestinal: No Musculoskeletal: No Endocrine: No HEENT: Yes (GLASSES, PARTIAL DENTURE) Loss of Vision: Denies Hearing Impairment: Denies Cancer: No Psychosocial: No Integumentary: Yes (shingles) Blood Disorders: No Adverse Reaction/Blood Tranf: No (N/A) Physical Exam Vital Signs Vital Signs - First Documented 09/18/19 07:24 Temp 37.6 Pulse 95 Resp 15 B/P (MAP) 150/96 (114) Pulse Ox 96 Capillary Refill : Height, Weight, BMI Height: '" Weight: lbs. oz. kg; 26.44 BMI Method: General Appearance: No Apparent Distress, WD/WN HEENT: TMs Normal Respiratory: Chest Non Tender, Lungs Clear, Normal Breath Sounds Cardiovascular: Regular Rate, Rhythm, No Edema Gastrointestinal: Non Tender, Soft Back: No CVA Tenderness Extremity: Normal Capillary Refill Neurologic/Psychiatric: Oriented x3, sales representative graphic art II-XII Norm as Tested Skin: Normal Color, Warm/Dry Progress/Results/Core Measures Suspected Sepsis SIRS Temperature: Pulse: Respiratory Rate: Blood Pressure / Mean: Results/Orders Lab Results Laboratory Tests Test 09/18/19 07:55 Range/Units Urine Color YELLOW Urine Clarity CLOUDY H Urine pH 6.5 5-9 Urine Specific [place] 1.015 L 1.016-1.022 Urine Protein 1+ H NEGATIVE Urine Glucose (UA) NEGATIVE NEGATIVE Urine Ketones NEGATIVE NEGATIVE Urine Nitrite NEGATIVE NEGATIVE Urine Bilirubin NEGATIVE NEGATIVE Urine Urobilinogen 0.2 < = 1.0 MG/DL Urine Leukocyte Esterase 2+ H NEGATIVE Urine RBC (Auto) 3+ H NEGATIVE Urine RBC >100 H /HPF Urine WBC TNTC H /HPF Urine Squamous Epithelial Cells 0-2 /HPF Urine Crystals NONE /LPF Urine Bacteria MODERATE H /HPF Urine Casts NONE /LPF Urine Mucus NEGATIVE /LPF Urine Culture Indicated YES My Orders Orders - JOLIE BAUTISTA DO Catheter(Urinary) Insert & Ass 03,15 (09/18/19 07:23) Bladder Scan (09/18/19 07:23) Ua Culture If Indicated (09/18/19 07:26) Lidocaine 2% (Urojet) (Xylocaine Urojet) (09/18/19 07:32) Urine Culture (09/18/19 07:55) Ciprofloxacin Tablet (Cipro Tablet) (09/18/19 09:15) Vital Signs/I&O 09/18/19 07:24 Temp 37.6 Pulse 95 Resp 15 B/P (MAP) 150/96 (114) Pulse Ox 96 Capillary Refill : Progress Note : Time: 09:47 Progress Note Patient was seen by Dr. Mock here in the ER. We will leave the Duke in and he will follow-up with him on Tuesday. We will. Place the patient on Flomax and Bactrim. Patient to be discharged home in stable condition Departure Impression Primary Impression: Acute urinary retention Disposition: 01 HOME, SELF-CARE Condition: Stable Departure-Patient Inst. Referrals: JANEL JEFFREY MD (PCP/Family) Primary Care Physician Patient Instructions: Urinary Retention (DC) Add. Discharge Instructions: Follow-up at Dr. Mock's office on Tuesday as instructed by him Emergency department focuses on treating and ruling out life-threatening diseases. Whenever possible, a diagnosis is given. However, most patients are given an impression based on their history, physical exam, and workup during your brief time in the ER. Information about probable diagnosis and other educational material has been provided. Please take the time to read and understand this information. It is very important that you follow up with a physician as discussed during the visit today. Failure to adhere to your follow-up instructions may lead to severe disability, injury, or so please make sure to keep your appointments or obtain one as requested. Please keep in mind the emergency department is not designed to your primary care or "family doctor" and nonurgent issues are best evaluated by an outpatient physician Scripts Tamsulosin HCl (Flomax) 0.4 Mg Cap 0.4 MG PO DAILY, #30 CAP Prov: JOLIE BAUTISTA DO 09/18/19 Sulfamethoxazole/Trimethoprim (Bactrim Ds Tablet) 1 Each Tablet 1 EACH PO BID, #14 TAB Prov: JOLIE BAUTISTA DO 09/18/19 JOLIE BAUTISTA DO Sep 18, 2019 07:18
[2019-09-18] MEDS ORDERED: LIDOCAINE UROJET 2% GEL 10 ML PKG ONE (07:32)
[2019-09-18 08:48] LABS: BACTERIA,URINE MODERATE /HPF; BILIRUBIN,URINE NEGATIVE (NEGATIVE); CLARITY,URINE CLOUDY; COLOR,URINE YELLOW; GLUCOSE, URINE (UA) NEGATIVE (NEGATIVE); KETONES,URINE NEGATIVE (NEGATIVE); LEUKOCYTE ESTERASE ,URINE 2+ (NEGATIVE); NITRITE,URINE NEGATIVE (NEGATIVE); PH,URINE 6.5 (5-9); PROTEIN,URINE 1+ (NEGATIVE); RBC,URINE >100 /HPF; SQUAMOUS EPITHELIAL CELL,UR 0-2 /HPF; WBC,URINE TNTC /HPF
--- NOTE | 2019-09-18 09:03 | NUR ---
HAVE HAND IRRIGATED W 1000CC NS AND HAVE 800CC OF PINK URINE RETURNED
--- NOTE | 2019-09-18 09:05 | NUR ---
BLADDER SCANNER SHOWS APPROX 10CC IN BLADDER
[2019-09-18] MEDS ORDERED: CIPROFLOXACIN 500 MG (CIPRO) TABLET PO SCH (09:15)
--- NOTE | 2019-09-18 09:40 | NUR ---
DR BROWN HERE TO SEE PT
[2019-09-18] MEDS ORDERED: SULF1TAB35 PO (09:49)
[2019-09-18] MEDS ORDERED: TMSL.4C PO (09:49)
[2019-09-18 10:05] VITALS: BP 150/96
--- NOTE | 2019-09-18 11:33 | CONSULTATION REPORT ---
DATE OF SERVICE: 09/18/2019 ATTENDING PHYSICIAN: Julius rodriguez. SUMMARY: A 78-year-old white man, who underwent a suprapubic prostatectomy on 08/01 was doing very well, seen in my office 2 weeks later, voiding well with a negative urine. No complaints. He was doing well until last night when he apparently had some clot retention and presented to the emergency room. Bladder scan showed 600 mL and nurse inserted a 3-way Duke catheter with no problem and drained the bladder and irrigated free of clots. There was no bleeding and no traumatizing effect. Urine is clear. They were concerned about confirming the right position of the catheter. Bladder scan showed a 19 mL in the bladder. I went ahead and hand irrigated the catheter freely with no problems and good return and good drainage and no clots and no bleeding. IMPRESSION: Clot retention. PLAN: I gave the ____ to the patient to either remove the catheter and see how he does at home with the risk of retention versus leave the catheter in until Tuesday and come to my office Tuesday morning and take it out and start him on Flomax . The patient elected the second option, so we will let him go home with the catheter bag instructions, prescription for Flomax, prescription for Bactrim DS b.i.d. pending the results of the culture since his UA was positive. The patient is to contact my office or the emergency room with any problem. Job ID: [id number] DocumentID: [id number] Dictated Date: 09/18/2019 10:01:51 Measurer Machine Date: 09/18/2019 11:32:59 Dictated By: LEE BROWN MD
--- NOTE | 2019-09-21 12:34 | NUR ---
Attempted to contact pt regarding need for change in atx d/t urine culture results.
--- OUTSIDE RECORDS SUMMARY | 2019-09-22 16:27 | XMS REPORT | Continuity of Care Document ---
Author Organization Unknown Address Unknown Phone Unavailable Allergies Active Description Code Type Severity Reaction Onset Reported/Identified Relationship to Patient Clinical Status Yes No Known Drug Allergies [id number] Drug Allergy Unknown N/A 07/27/2019 Medications There is no data. Problems Date Dx Coded Attending Type Code Diagnosis Diagnosed By 07/01/2019 ITZ REICH MD Ot R10. 32 LEFT LOWER QUADRANT PAIN 07/01/2019 ITZ REICH MD Ot R33. 9 RETENTION OF URINE, UNSPECIFIED 07/04/2019 ITZ REICH MD Ot R10. 32 LEFT LOWER QUADRANT PAIN 07/04/2019 ITZ REICH MD Ot R33. 9 RETENTION OF URINE, UNSPECIFIED 07/10/2019 ITZ REICH MD Ot R10. 32 LEFT LOWER QUADRANT PAIN 07/10/2019 ITZ REICH MD Ot R33. 9 RETENTION OF URINE, UNSPECIFIED 07/14/2019 JASON CHRISTOPHER MD Ot R33. 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 9 UNSPECIFIED ABDOMINAL PAIN 07/18/2019 JENNY RAY MD Ot R33. 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 9 UNSPECIFIED ABDOMINAL PAIN 07/24/2019 JENNY RAY MD Ot R33. 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 07/27/2019 LEE BROWN MD Ot Z01.8 18 ENCOUNTER FOR OTHER PREPROCEDURAL EXAMIN 08/02/2019 LEE BROWN MD Ot Z01.8 18 ENCOUNTER FOR OTHER PREPROCEDURAL EXAMIN 08/09/2019 LEE BROWN MD Ot B02.2 9 OTHER POSTHERPETIC NERVOUS SYSTEM INVOLV 08/09/2019 LEE BROWN MD, Ot D62 ACUTE POSTHEMORRHAGIC ANEMIA 08/09/2019 LEE BROWN MD, Ot G47.0 0 INSOMNIA, UNSPECIFIED 08/09/2019 LEE BROWN MD, Ot N40.1 BENIGN PROSTATIC HYPERPLASIA WITH LOWER 08/09/2019 LEE BROWN MD, Ot R33.9 RETENTION OF URINE, UNSPECIFIED Procedures Code Description Performed By Per formed On [id number] RE SECTION OF PROSTATE, OPEN APPROACH 08/01/2019 Results Test Result Range LIPID PANEL - 03/23/19 08:36 CHOLESTEROL, TOTAL 128 mg/dL <200 HDL CHOLESTEROL 54 mg/dL >40 TRIGLYCERIDES 64 mg/dL <150 LDL-CHOLESTEROL 60 mg/dL (calc) NRG CHOL/HDLC RATIO 2.4 (calc) <5.0 NON HDL CHOLESTEROL 74 mg/dL (calc) <130 CMP - 03/23/19 08:36 GLUCOSE 106 mg/dL 65-99 UREA NITROGEN (BUN) 16 mg/dL 7-25 CREATININE 0.91 mg/dL 0.70-1.18 eGFR NON-AFR. GAMBIAN 80 mL/min/1.73m2 > OR = 60 eGFR 93 mL/min/1.73m2 > OR = 60 BUN/CREATININE RATIO NOT APPLICABLE (calc) 6-22 SODIUM 138 mmol/L 135-146 POTASSIUM 4.8 mmol/L 3.5-5.3 CHLORIDE 103 mmol/L 98-110 CARBON DIOXIDE 26 mmol/L 20-32 CALCIUM 9.4 mg/dL 8.6-10.3 PROTEIN, TOTAL 7.1 g/dL 6.1-8.1 ALBUMIN 4.5 g/dL 3.6-5.1 GLOBULIN 2.6 g/dL (calc) 1.9-3.7 ALBUMIN/GLOBULIN RATIO 1.7 (calc) 1.0-2. 5 BILIRUBIN, TOTAL 1.2 mg/dL 0.2-1.2 ALKALINE PHOSPHATASE 49 U/L 40-115 AST 18 U/L 10-35 ALT 14 U/L 9-46 CBC w/MANUAL DIFF - 03/23/19 08:36 WHITE BLOOD CELL COUNT 7.3 Thousand/uL 3 .8-10.8 RED BLOOD CELL COUNT 5.15 Million/uL 4.2 0-5.80 HEMOGLOBIN 15.3 g/dL 13.2-17.1 HEMATOCRIT 46.5 % 38.5-50.0 MCV 90.3 fL 80.0-100.0 MCH 29.7 pg 27.0-33.0 MCHC 32.9 g/dL 32.0-36.0 RDW 13.2 % 11.0-15.0 PLATELET COUNT 249 Thousand/uL 140-400 MPV 10.2 fL 7.5-12.5 ABSOLUTE NEUTROPHILS 3504 cells/uL 1500- 7800 ABSOLUTE MONOCYTES 672 cells/uL 200-950 ABSOLUTE EOSINOPHILS 226 cells/uL 15-500 ABSOLUTE BASOPHILS 0 cells/uL 0-200 NEUTROPHILS 48.0 % NRG LYMPHOCYTES 37.7 % NRG MONOCYTES 9.2 % NRG EOSINOPHILS 3.1 % NRG BASOPHILS 0 % NRG ABSOLUTE BAND NEUTROPHILS 146 cells/uL 0 -750 ABSOLUTE LYMPHOCYTES 2752 cells/uL 850-3 900 BAND NEUTROPHILS 2.0 % NRG COMMENT(S) NRG Complete blood count (CBC) with automate d white blood cell (WBC) differential - 07/01/19 09:55 Blood leukocytes automated count (number/volume) 7.8 10*3/uL 4.3-11.0 Blood erythrocytes automated count (number/volume) 5.22 10*6/uL 4.35-5.85 Venous blood hemoglobin measurement (mass/volume) 15.5 g/dL 13.3-17.7 Blood hematocrit (volume fraction) 47 % 40-54 Automated erythrocyte mean corpuscular volume 90 [ foz_us] 80-99 Automated erythrocyte mean corpuscular h emoglobin (mass per erythrocyte) 30 pg 25-34 Automated erythrocyte mean corpuscular h emoglobin concentration measurement (mass/volume) 33 g/dL 32-36 Automated erythrocyte distribution width ratio 12. 4 % 10.0- 14.5 Automated blood platelet count (count/volume) 282 10*3/uL 130-400 Automated blood platelet mean volume measurement 9.8 [foz_us] 7.4-10.4 Automated blood neutrophils/100 leukocytes 60 % 42-75 Automated blood lymphocytes/100 leukocytes 27 % 12-44 Blood monocytes/100 leukocytes 11 % 0-12 Automated blood eosinophils/100 leukocytes 1 % 0-10 Automated blood basophils/100 leukocytes 1 % 0-10 Blood neutrophils automated count (number/volume) 4.6 10*3 1.8-7.8 Blood lymphocytes automated count (number/volume) 2.1 10*3 1.0-4.0 Blood monocytes automated count (number/volume) 0. 8 10*3 0.0-1.0 Automated eosinophil count 0.1 10*3/uL 0 .0-0.3 Automated blood basophil count (count/volume) 0.1 10*3/uL 0.0-0.1 Comprehensive metabolic panel - 07/01/19 09:55 Serum or plasma sodium measurement (moles/volume) 140 mmol/L 135-145 Serum or plasma potassium measurement (moles/volume) 4.2 mmol/L 3.6-5.0 Serum or plasma chloride measurement (moles/volume) 101 mmol/L 98-107 Carbon dioxide 27 mmol/L 21-32 Serum or plasma anion gap determination (moles/volume) 12 mmol/L 5-14 Serum or plasma urea nitrogen measurement (mass/volume ) 12 mg/dL 7-18 Serum or plasma creatinine measurement (mass/volume) 0.85 mg/dL 0.60-1.30 Serum or plasma urea nitrogen/creatinine mass ratio 14 NRG Serum or plasma creatinine measurement w ith calculation of estimated glomerular filtration rate > NRG Serum or plasma glucose measurement (mass/volume) 121 mg/dL 70-105 Serum or plasma calcium measurement (mass/volume) 9.1 mg/dL 8.5-10.1 Serum or plasma total bilirubin measurement (mass/volu me) 1.0 mg/dL 0.1-1.0 Serum or plasma alkaline phosphatase dwayne surement (enzymatic activity/volume) 46 U/L 40-136 Serum or plasma aspartate aminotransfera se measurement (enzymatic activity/volume) 16 U/L 5-34 Serum or plasma alanine aminotransferase measurement (enzymatic activity/volume) 13 U/L 0-55 Serum or plasma protein measurement (mass/volume) 7.3 g/dL 6.4-8.2 Serum or plasma albumin measurement (mass/volume) 4.2 g/dL 3.2-4.5 CALCIUM CORRECTED 8.9 mg/dL 8.5-10.1 Complete urinalysis with reflex to cultu re - 07/01/19 11:09 Urine color determination YELLOW NRG Urine clarity determination CLEAR NR G Urine pH measurement by test strip 7.0 5-9 Specific gravity of urine by test strip 1.010 1.016-1.022 Urine protein assay by test strip, semi-quantitative NEGATIVE NEGATIVE Urine glucose detection by automated test strip NE GATIVE NEGATIVE Erythrocytes detection in urine sediment by light micr oscopy 2+ NEGATIVE Urine ketones detection by automated test strip NE GATIVE NEGATIVE Urine nitrite detection by test strip NEGATIVE NEGATIVE Urine total bilirubin detection by test strip NEGA TIVE NEGATIVE Urine urobilinogen measurement by automated test strip (mass/volume) 0.2 mg/dL < = 1.0 Urine leukocyte esterase detection by dipstick NEG ATIVE NEGATIVE Automated urine sediment erythrocyte cou nt by microscopy (number/high power field) [HPF] NRG Automated urine sediment leukocyte count by microscopy (number/high power field) NONE NRG Bacteria detection in urine sediment by light microsco py NEGATIVE NRG Squamous epithelial cells detection in u rine sediment by light microscopy RARE NRG Crystals detection in urine sediment by light microsco py NONE NRG Casts detection in urine sediment by light microscopy NONE NRG Mucus detection in urine sediment by light microscopy NONE NRG Complete urinalysis with reflex to culture NO NRG Complete urinalysis with reflex to cultu re - 07/14/19 15:45 Urine color determination YELLOW NRG Urine clarity determination CLEAR NR G Urine pH measurement by test strip 7.0 5-9 Specific gravity of urine by test strip 1.010 1.016-1.022 Urine protein assay by test strip, semi-quantitative NEGATIVE NEGATIVE Urine glucose detection by automated test strip NE GATIVE NEGATIVE Erythrocytes detection in urine sediment by light micr oscopy NEGATIVE NEGATIVE Urine ketones detection by automated test strip NE GATIVE NEGATIVE Urine nitrite detection by test strip NEGATIVE NEGATIVE Urine total bilirubin detection by test strip NEGA TIVE NEGATIVE Urine urobilinogen measurement by automated test strip (mass/volume) 0.2 mg/dL < = 1.0 Urine leukocyte esterase detection by dipstick NEG ATIVE NEGATIVE Automated urine sediment erythrocyte cou nt by microscopy (number/high power field) NONE NRG Automated urine sediment leukocyte count by microscopy (number/high power field) RARE NRG Bacteria detection in urine sediment by light microsco py NEGATIVE NRG Squamous epithelial cells detection in u rine sediment by light microscopy RARE NRG Crystals detection in urine sediment by light microsco py NONE NRG Casts detection in urine sediment by light microscopy NONE NRG Mucus detection in urine sediment by light microscopy NEGATIVE NRG Complete urinalysis with reflex to culture NO NRG Complete blood count (CBC) with automate d white blood cell (WBC) differential - 08/01/19 06:25 Blood leukocytes automated count (number/volume) 7.5 10*3/uL 4.3-11.0 Blood erythrocytes automated count (number/volume) 4.90 10*6/uL 4.35-5.85 Venous blood hemoglobin measurement (mass/volume) 14.2 g/dL 13.3-17.7 Blood hematocrit (volume fraction) 43 % 40-54 Automated erythrocyte mean corpuscular volume 88 [ foz_us] 80-99 Automated erythrocyte mean corpuscular h emoglobin (mass per erythrocyte) 29 pg 25-34 Automated erythrocyte mean corpuscular h emoglobin concentration measurement (mass/volume) 33 g/dL 32-36 Automated erythrocyte distribution width ratio 13. 0 % 10.0- 14.5 Automated blood platelet count (count/volume) 265 10*3/uL 130-400 Automated blood platelet mean volume measurement 9.5 [foz_us] 7.4-10.4 Automated blood neutrophils/100 leukocytes 56 % 42-75 Automated blood lymphocytes/100 leukocytes 34 % 12-44 Blood monocytes/100 leukocytes 9 % 0-12 Automated blood eosinophils/100 leukocytes 1 % 0-10 Automated blood basophils/100 leukocytes 1 % 0-10 Blood neutrophils automated count (number/volume) 4.2 10*3 1.8-7.8 Blood lymphocytes automated count (number/volume) 2.5 10*3 1.0-4.0 Blood monocytes automated count (number/volume) 0. 7 10*3 0.0-1.0 Automated eosinophil count 0.1 10*3/uL 0 .0-0.3 Automated blood basophil count (count/volume) 0.0 10*3/uL 0.0-0.1 Whole blood basic metabolic panel - 07/18 12/04 06:25 Serum or plasma sodium measurement (moles/volume) 140 mmol/L 135-145 Serum or plasma potassium measurement (moles/volume) 3.8 mmol/L 3.6-5.0 Serum or plasma chloride measurement (moles/volume) 105 mmol/L 98-107 Carbon dioxide 24 mmol/L 21-32 Serum or plasma anion gap determination (moles/volume) 11 mmol/L 5-14 Serum or plasma urea nitrogen measurement (mass/volume ) 11 mg/dL 7-18 Serum or plasma creatinine measurement (mass/volume) 0.83 mg/dL 0.60-1.30 Serum or plasma urea nitrogen/creatinine mass ratio 13 NRG Serum or plasma creatinine measurement w ith calculation of estimated glomerular filtration rate > NRG Serum or plasma glucose measurement (mass/volume) 107 mg/dL 70-105 Serum or plasma calcium measurement (mass/volume) 9.0 mg/dL 8.5-10.1 Blood type T Indirect antibody screen pa ilsa - 08/01/19 06:25 WRISTBAND NUMBER [id number] NRG ABO+Rh group OP NRG Blood group antibody screen NEGATIVE NR G Methicillin resistant Staphylococcus aur eus (MRSA) screening culture - 08/01/19 06:25 Methicillin resistant Staphylococcus aureus (MRSA) scr eening culture NEG NRG Automated blood complete blood count (he mogram) panel - 08/01/19 09:50 Blood leukocytes automated count (number/volume) 12.0 10*3/uL 4.3-11.0 Blood erythrocytes automated count (number/volume) 4.24 10*6/uL 4.35-5.85 Venous blood hemoglobin measurement (mass/volume) 12.4 g/dL 13.3-17.7 Blood hematocrit (volume fraction) 38 % 40-54 Automated erythrocyte mean corpuscular volume 89 [ foz_us] 80-99 Automated erythrocyte mean corpuscular h emoglobin (mass per erythrocyte) 29 pg 25-34 Automated erythrocyte mean corpuscular h emoglobin concentration measurement (mass/volume) 33 g/dL 32-36 Automated erythrocyte distribution width ratio 12. 7 % 10.0- 14.5 Automated blood platelet count (count/volume) 264 10*3/uL 130-400 Automated blood platelet mean volume measurement 9.4 [foz_us] 7.4-10.4 Whole blood basic metabolic panel - 07/18 12/04 09:50 Serum or plasma sodium measurement (moles/volume) 139 mmol/L 135-145 Serum or plasma potassium measurement (moles/volume) 4.4 mmol/L 3.6-5.0 Serum or plasma chloride measurement (moles/volume) 108 mmol/L 98-107 Carbon dioxide 24 mmol/L 21-32 Serum or plasma anion gap determination (moles/volume) 7 mmol/L 5-14 Serum or plasma urea nitrogen measurement (mass/volume ) 11 mg/dL 7-18 Serum or plasma creatinine measurement (mass/volume) 0.80 mg/dL 0.60-1.30 Serum or plasma urea nitrogen/creatinine mass ratio 14 NRG Serum or plasma creatinine measurement w ith calculation of estimated glomerular filtration rate > NRG Serum or plasma glucose measurement (mass/volume) 143 mg/dL 70-105 Serum or plasma calcium measurement (mass/volume) 8.0 mg/dL 8.5-10.1 Blood CBC with ordered manual differenti al panel - 08/02/19 05:47 Blood leukocytes automated count (number/volume) 15.2 10*3/uL 4.3-11.0 Blood erythrocytes automated count (number/volume) 3.88 10*6/uL 4.35-5.85 Venous blood hemoglobin measurement (mass/volume) 11.5 g/dL 13.3-17.7 Blood hematocrit (volume fraction) 35 % 40-54 Automated erythrocyte mean corpuscular volume 89 [ foz_us] 80-99 Automated erythrocyte mean corpuscular h emoglobin (mass per erythrocyte) 30 pg 25-34 Automated erythrocyte mean corpuscular h emoglobin concentration measurement (mass/volume) 33 g/dL 32-36 Automated erythrocyte distribution width ratio 13. 0 % 10.0- 14.5 Automated blood platelet count (count/volume) 250 10*3/uL 130-400 Automated blood platelet mean volume measurement 10.0 [foz_us] 7.4-10.4 Automated blood neutrophils/100 leukocytes 75 % 42-75 Automated blood lymphocytes/100 leukocytes 13 % 12-44 Blood monocytes/100 leukocytes 9 % NRG Automated blood eosinophils/100 leukocytes 0 % 0-10 Automated blood basophils/100 leukocytes 0 % 0-10 Blood neutrophils automated count (number/volume) 11.4 10*3 1.8-7.8 Blood lymphocytes automated count (number/volume) 1.9 10*3 1.0-4.0 Blood monocytes automated count (number/volume) 1. 8 10*3 0.0-1.0 Automated eosinophil count 0.0 10*3/uL 0 .0-0.3 Automated blood basophil count (count/volume) 0.0 10*3/uL 0.0-0.1 Manual blood segmented neutrophils/100 leukocytes 74 % NRG Blood band neutrophils/100 leukocytes 6 % NRG Manual blood lymphocytes/100 leukocytes 11 % NRG Manual eosinophils/100 leukocytes in nose 0 % NRG Manual blood basophils/100 leukocytes 0 % NRG Blood ovalocytes detection by light microscopy I T NRG Whole blood basic metabolic panel - 07/18 01/04 05:47 Serum or plasma sodium measurement (moles/volume) 138 mmol/L 135-145 Serum or plasma potassium measurement (moles/volume) 4.7 mmol/L 3.6-5.0 Serum or plasma chloride measurement (moles/volume) 107 mmol/L 98-107 Carbon dioxide 21 mmol/L 21-32 Serum or plasma anion gap determination (moles/volume) 10 mmol/L 5-14 Serum or plasma urea nitrogen measurement (mass/volume ) 15 mg/dL 7-18 Serum or plasma creatinine measurement (mass/volume) 0.79 mg/dL 0.60-1.30 Serum or plasma urea nitrogen/creatinine mass ratio 19 NRG Serum or plasma creatinine measurement w ith calculation of estimated glomerular filtration rate > NRG Serum or plasma glucose measurement (mass/volume) 118 mg/dL 70-105 Serum or plasma calcium measurement (mass/volume) 8.0 mg/dL 8.5-10.1 Whole blood basic metabolic panel - 07/18 02/03 04:22 Serum or plasma sodium measurement (moles/volume) 134 mmol/L 135-145 Serum or plasma potassium measurement (moles/volume) 3.9 mmol/L 3.6-5.0 Serum or plasma chloride measurement (moles/volume) 103 mmol/L 98-107 Carbon dioxide 21 mmol/L 21-32 Serum or plasma anion gap determination (moles/volume) 10 mmol/L 5-14 Serum or plasma urea nitrogen measurement (mass/volume ) 11 mg/dL 7-18 Serum or plasma creatinine measurement (mass/volume) 0.67 mg/dL 0.60-1.30 Serum or plasma urea nitrogen/creatinine mass ratio 16 NRG Serum or plasma creatinine measurement w ith calculation of estimated glomerular filtration rate > NRG Serum or plasma glucose measurement (mass/volume) 110 mg/dL 70-105 Serum or plasma calcium measurement (mass/volume) 8.1 mg/dL 8.5-10.1 Complete blood count (CBC) with automate d white blood cell (WBC) differential - 08/03/19 04:27 Blood leukocytes automated count (number/volume) 14.4 10*3/uL 4.3-11.0 Blood erythrocytes automated count (number/volume) 3.82 10*6/uL 4.35-5.85 Venous blood hemoglobin measurement (mass/volume) 11.1 g/dL 13.3-17.7 Blood hematocrit (volume fraction) 34 % 40-54 Automated erythrocyte mean corpuscular volume 90 [ foz_us] 80-99 Automated erythrocyte mean corpuscular h emoglobin (mass per erythrocyte) 29 pg 25-34 Automated erythrocyte mean corpuscular h emoglobin concentration measurement (mass/volume) 33 g/dL 32-36 Automated erythrocyte distribution width ratio 12. 9 % 10.0- 14.5 Automated blood platelet count (count/volume) 237 10*3/uL 130-400 Automated blood platelet mean volume measurement 10.0 [foz_us] 7.4-10.4 Automated blood neutrophils/100 leukocytes 78 % 42-75 Automated blood lymphocytes/100 leukocytes 11 % 12-44 Blood monocytes/100 leukocytes 11 % 0-12 Automated blood eosinophils/100 leukocytes 0 % 0-10 Automated blood basophils/100 leukocytes 0 % 0-10 Blood neutrophils automated count (number/volume) 11.3 10*3 1.8-7.8 Blood lymphocytes automated count (number/volume) 1.5 10*3 1.0-4.0 Blood monocytes automated count (number/volume) 1. 6 10*3 0.0-1.0 Automated eosinophil count 0.0 10*3/uL 0 .0-0.3 Automated blood basophil count (count/volume) 0.0 10*3/uL 0.0-0.1 Manual absolute plasma cell count - 07/18 02/03 04:27 Blood monocytes/100 leukocytes 12 % NRG Manual blood segmented neutrophils/100 leukocytes 78 % NRG Manual blood lymphocytes/100 leukocytes 10 % NRG Complete blood count (CBC) with automate d white blood cell (WBC) differential - 08/08/19 07:15 Blood leukocytes automated count (number/volume) 10.2 10*3/uL 4.3-11.0 Blood erythrocytes automated count (number/volume) 3.66 10*6/uL 4.35-5.85 Venous blood hemoglobin measurement (mass/volume) 10.8 g/dL 13.3-17.7 Blood hematocrit (volume fraction) 33 % 40-54 Automated erythrocyte mean corpuscular volume 89 [ foz_us] 80-99 Automated erythrocyte mean corpuscular h emoglobin (mass per erythrocyte) 30 pg 25-34 Automated erythrocyte mean corpuscular h emoglobin concentration measurement (mass/volume) 33 g/dL 32-36 Automated erythrocyte distribution width ratio 13. 0 % 10.0- 14.5 Automated blood platelet count (count/volume) 251 10*3/uL 130-400 Automated blood platelet mean volume measurement 9.5 [foz_us] 7.4-10.4 Automated blood neutrophils/100 leukocytes 67 % 42-75 Automated blood lymphocytes/100 leukocytes 21 % 12-44 Blood monocytes/100 leukocytes 10 % 0-12 Automated blood eosinophils/100 leukocytes 2 % 0-10 Automated blood basophils/100 leukocytes 0 % 0-10 Blood neutrophils automated count (number/volume) 6.8 10*3 1.8-7.8 Blood lymphocytes automated count (number/volume) 2.2 10*3 1.0-4.0 Blood monocytes automated count (number/volume) 1. 0 10*3 0.0-1.0 Automated eosinophil count 0.2 10*3/uL 0 .0-0.3 Automated blood basophil count (count/volume) 0.0 10*3/uL 0.0-0.1 Whole blood basic metabolic panel - 07/19 09/06 07:15 Serum or plasma sodium measurement (moles/volume) 136 mmol/L 135-145 Serum or plasma potassium measurement (moles/volume) 4.5 mmol/L 3.6-5.0 Serum or plasma chloride measurement (moles/volume) 101 mmol/L 98-107 Carbon dioxide 25 mmol/L 21-32 Serum or plasma anion gap determination (moles/volume) 10 mmol/L 5-14 Serum or plasma urea nitrogen measurement (mass/volume ) 12 mg/dL 7-18 Serum or plasma creatinine measurement (mass/volume) 0.68 mg/dL 0.60-1.30 Serum or plasma urea nitrogen/creatinine mass ratio 18 NRG Serum or plasma creatinine measurement w ith calculation of estimated glomerular filtration rate > NRG Serum or plasma glucose measurement (mass/volume) 107 mg/dL 70-105 Serum or plasma calcium measurement (mass/volume) 8.3 mg/dL 8.5-10.1 Complete urinalysis with reflex to cultu re - 09/18/19 07:55 Urine color determination YELLOW NRG Urine clarity determination CLOUDY NR G Urine pH measurement by test strip 6.5 5-9 Specific gravity of urine by test strip 1.015 1.016-1.022 Urine protein assay by test strip, semi-quantitative 1+ NEGATIVE Urine glucose detection by automated test strip NE GATIVE NEGATIVE Erythrocytes detection in urine sediment by light micr oscopy 3+ NEGATIVE Urine ketones detection by automated test strip NE GATIVE NEGATIVE Urine nitrite detection by test strip NEGATIVE NEGATIVE Urine total bilirubin detection by test strip NEGA TIVE NEGATIVE Urine urobilinogen measurement by automated test strip (mass/volume) 0.2 mg/dL < = 1.0 Urine leukocyte esterase detection by dipstick 2+ NEGATIVE Automated urine sediment erythrocyte cou nt by microscopy (number/high power field) > [HPF] NRG Automated urine sediment leukocyte count by microscopy (number/high power field) TNTC NRG Bacteria detection in urine sediment by light microsco py MODERATE NRG Squamous epithelial cells detection in u rine sediment by light microscopy 0-2 NRG Crystals detection in urine sediment by light microsco py NONE NRG Casts detection in urine sediment by light microscopy NONE NRG Mucus detection in urine sediment by light microscopy NEGATIVE NRG Complete urinalysis with reflex to culture YES NRG Bacterial urine culture - 09/18/19 07:55 Bacterial urine culture [id number] NRG COLONY COUNT >100,000/ML NRG FTX;REPORTABLE SUSCEPTIBILITY REPORTED 09/20 11:20 NRG FREE TEXT ENTRY 2 RAPID PRELIM ID AT [facility] 09/18 09:45 NRG FREE TEXT ENTRY 3 RML CONFIRMED ID 09/18 12:05 NRG Dirithromycin susceptibility test by dis k diffusion - 09/18/19 07:55 Vancomycin susceptibility test by minimum inhibitory c oncentration 1 NRG Levofloxacin susceptibility test by minimum inhibitory concentration <= NRG Ampicillin susceptibility test by minimum inhibitory c oncentration 2 NRG Nitrofurantoin susceptibility test by mi nimum inhibitory concentration <= NRG Linezolid susceptibility test by minimum inhibitory co ncentration <= NRG Daptomycin susc SLOANE 2 NRG Dirithromycin susceptibility test by dis k diffusion - 09/18/19 07:55 Oxacillin susceptibility test by minimum inhibitory co ncentration > NRG Vancomycin susceptibility test by minimum inhibitory c oncentration 1 NRG Levofloxacin susceptibility test by minimum inhibitory concentration > NRG Rifampin susceptibility test by minimum inhibitory con centration 2 NRG Cefazolin susceptibility test by minimum inhibitory co ncentration R NRG Nitrofurantoin susceptibility test by mi nimum inhibitory concentration <= NRG Penicillin G susceptibility test by minimum inhibitory concentration > NRG Encounters ACCT No. Visit Date/Time Discharge Status Pt. Type Provider Facility Loc./Unit Complaint [id number] 06/02/2019 15:30:00 06/02/2019 23:59: 59 [facility] Outpatient JANEL JEFFREY [facility] [id number] 03/23/2019 08:40:00 Document Registration [id number] 09/18/2019 07:00:00 10:05:00 DIS Emergency JOLIE BAUTISTA DO [facility] [address] ER POST OP SURGERY ISSUES( PROSTATE) [id number] 08/01/2019 05:54:00 13:00:00 DIS Inpatient LEE BROWN MD [facility] [address] 4TH BPH, RETENTION [id number] 07/27/2019 05:38:00 12:24:00 DIS Outpatient LEE BROWN MD [facility] [address] PREOP BOH, RETENTION [id number] 07/19/2019 09:28:00 10:05:00 DIS Emergency RACHANA MENA, ITZ Sanders [facility] [address] ER FS CATHETER PROBLEM [id number] 07/18/2019 00:38:00 01:09:00 DIS Emergency FLOR MENA, JENNY Webster [facility] [address] ER FS ABD PAIN [id number] 07/14/2019 15:14:00 16:31:00 DIS Emergency ASHWIN MENA, JASON Rich [facility] [address] ER FS UNABLE TO URINATE [id number] 07/01/2019 09:44:00 12:18:00 DIS Emergency RACHANA MENA, ITZ Sanders [facility] [address] ER FS ABD PAIN [id number] 10/31/2013 17:30:00 014 23:59:59 CLS Outpatient [id number] 10/31/2013 13:41:00 014 23:59:59 CLS Outpatient
== END 2019-09-18 10:05 | disposition home or self-care (01) ==
LOC: EDUNIT# 06:59 → ER 07:00
DX: R33.9 Retention of urine, unspecified (principal); Z77.22 Contact with and (suspected) exposure to environmental tobacco smoke (acute) (chronic); Z87.891 Personal history of nicotine dependence
CPT/HCPCS: 51702; 81000; 87077; 87088; 87186

== ENCOUNTER 2022-06-16 14:55 | Inpatient (IN) | payer MEDICARE, OTHER ==
[~2022-06-16] VITALS: Ht 185.5 cm; Wt 92.6 kg
[~2022-06-16 14:55] MED LIST changes: -CIPR500T4 PO; +CIPR500T5 PO; -SULF1TAB35 PO; +SULF1TAB38 PO; +TMSL.4C PO
--- NOTE | 2022-06-16 15:07 | ED Cardiac General ---
History of Present Illness General Chief Complaint: Cardiac/General Problems Stated Complaint: A-FIB Source: patient Exam Limitations: no limitations History of Present Illness Date Seen by Provider: Jun 16, 2022 Time Seen by Provider: 15:05 Initial Comments 81-year-old male presents from Dr. GRAHAM's office where he is being seen for shortness of breath. He was found to have new onset of atrial fibrillation with a heart rate between [id number]. He was sent here for further evaluation. No history of atrial fibrillation. He takes no medications daily. No history of c oronary disease or respiratory issues. For last couple of weeks he is felt short of breath, especially with lying flat. He is also bilateral leg swelling which is new for him. No fevers or chills. No cough. No chest pains. Allergies and Home Medications Allergies Coded Allergies: No Known Drug Allergies (Unverified , 07/27/19) Patient Home Medication List Home Medication List Reviewed: Yes Gabapentin (Neurontin) 300 Mg Capsule, 600 MG PO TID, (Reported) Entered as Reported by: MAMI MAYBERRY on 06/18/22 1453 Last Action: Reviewed Discontinued Medications Gabapentin (Gabapentin) 300 Mg Capsule, 300 MG PO HS, (Reported) Discontinued Reason: No Longer Taking Entered as Reported by: CHESTER SNIDER on 07/27/19 1205 Last Action: Discontinued Sulfamethoxazole/Trimethoprim (Bactrim Ds Tablet) 1 Each Tablet, 1 EACH PO BID Discontinued Reason: No Longer Taking Prescribed by: JOLIE BAUTISTA on 09/18/19 0942 Last Action: Discontinued Tamsulosin HCl (Flomax) 0.4 Mg Cap, 0.4 MG PO DAILY Discontinued Reason: No Longer Taking Prescribed by: JOLIE BAUTISTA on 09/18/19948 Last Action: Discontinued Review of Systems Review of Systems Constitutional: weakness EENTM: No Symptoms Reported Respiratory: Shortness of Air Cardiovascular: No Symptoms Reported Gastrointestinal: No Symptoms Reported Genitourinary: No Symptoms Reported Musculoskeletal: other (Bilateral leg swelling) Skin: no symptoms reported Psychiatric/Neurological: No Symptoms Reported Endocrine: No Symptoms Reported Hematologic/Lymphatic: No Symptoms Reported Past Qvzbljr-Kwqucb-Omyzdp Hx Patient Social History Tobacco Use?: No Use of E-Cig and/or Vaping dev: No Substance use?: No Alcohol Use?: No Seasonal Allergies Seasonal Allergies: No Past Medical History Surgeries: Yes Prostatectomy, Tonsillectomy Respiratory: No Cardiac: No Neurological: No Neuropathy Sexually Transmitted Disease: No HIV/AIDS: No Genitourinary: Yes Benign Prostatic Hyperpl, Prostate Problems Gastrointestinal: No Musculoskeletal: No Endocrine: No HEENT: Yes (GLASSES, PARTIAL DENTURE) Loss of Vision: Denies Hearing Impairment: Denies Cancer: No Psychosocial: No Integumentary: Yes (shingles) Blood Disorders: No Adverse Reaction/Blood Tranf: No (N/A) Family Medical History Reviewed Nursing Family Hx No Pertinent Family Hx Physical Exam Vital Signs Vital Signs - First Documented 06/16/22 06/16/22 15:07 16:48 Temp 36.6 Pulse 148 Resp 22 B/P (MAP) 142/104 (117) Pulse Ox 94 O2 Delivery Room Air Capillary Refill : Height, Weight, BMI Height: '" Weight: lbs. oz. kg; 26.00 BMI Method: General Appearance: No Apparent Distress HEENT: Normal ENT Inspection, Pharynx Normal Neck: Normal Inspection, Non Tender Respiratory: Chest Non Tender, No Accessory Muscle Use, No Respiratory Distress, Crackles Cardiovascular: No Murmur, Normal Peripheral Pulses, Irregularly Irregular, Other (2+ pitting edema bilateral lower extremities) Gastrointestinal: Normal Bowel Sounds, No Organomegaly Extremity: Normal Capillary Refill, Normal Range of Motion, Swelling Neurologic/Psychiatric: Alert, Oriented x3 Skin: Normal Color, Warm/Dry Lymphatic: No Adenopathy Focused Exam Lactate Level 06/16/22 14:25: Lactic Acid Level 1.73 Lactic Acid Level Laboratory Tests Test 06/16/22 14:25 Lactic Acid Level 1.73 MMOL/L (0.50-2.00) Progress/Results/Core Measures Results/Orders Lab Results Laboratory Tests Test 06/16/22 14:25 Range/Units White Blood Count 8.0 4.3-11.0 10^3/uL Red Blood Count 4.76 4.30-5.52 10^6/uL Hemoglobin 14.1 13.3-17.7 g/dL Hematocrit 43 40-54 % Mean Corpuscular Volume 90 80-99 fL Mean Corpuscular Hemoglobin 30 25-34 pg Mean Corpuscular Hemoglobin Concent 33 32-36 g/dL Red Cell Distribution Width 13.6 10.0-14.5 % Platelet Count 220 130-400 10^3/uL Mean Platelet Volume 10.7 9.0-12.2 fL Immature Granulocyte % (Auto) 0 % Neutrophils (%) (Auto) 57 42-75 % Lymphocytes (%) (Auto) 31 12-44 % Monocytes (%) (Auto) 11 0-12 % Eosinophils (%) (Auto) 1 0-10 % Basophils (%) (Auto) 1 0-10 % Neutrophils # (Auto) 4.6 1.8-7.8 10^3/uL Lymphocytes # (Auto) 2.5 1.0-4.0 10^3/uL Monocytes # (Auto) 0.9 0.0-1.0 10^3/uL Eosinophils # (Auto) 0.0 0.0-0.3 10^3/uL Basophils # (Auto) 0.1 0.0-0.1 10^3/uL Immature Granulocyte # (Auto) 0.0 0.0-0.1 10^3/uL Sodium Level 139 135-145 MMOL/L Potassium Level 4.3 3.6-5.0 MMOL/L Chloride Level 101 98-107 MMOL/L Carbon Dioxide Level 24 21-32 MMOL/L Anion Gap 14 5-14 MMOL/L Blood Urea Nitrogen 17 7-18 MG/DL Creatinine 0.89 0.60-1.30 MG/DL Estimat Glomerular Filtration Rate 86 BUN/Creatinine Ratio 19 Glucose Level 113 H 70-105 MG/DL Lactic Acid Level 1.73 0.50-2.00 MMOL/L Calcium Level 9.2 8.5-10.1 MG/DL Corrected Calcium 9.0 8.5-10.1 MG/DL Magnesium Level 2.1 1.6-2.4 MG/DL Total Bilirubin 1.4 H 0.1-1.0 MG/DL Aspartate Amino Transf (AST/SGOT) 23 5-34 U/L Alanine Aminotransferase (ALT/SGPT) 21 0-55 U/L Alkaline Phosphatase 54 40-136 U/L Troponin I < 0.30 <0.30 NG/ML Total Protein 7.2 6.4-8.2 GM/DL Albumin 4.2 3.2-4.5 GM/DL Influenza Type A (RT-PCR) Not Detected Not Detecte Influenza Type B (RT-PCR) Not Detected Not Detecte SARS-CoV-2 RNA (RT-PCR) Not Detected Not Detecte My Orders Orders - KELSIE GAN DO Cbc With Automated Diff (06/16/22 15:16) Comprehensive Metabolic Panel (06/16/22 15:16) Troponin I Fs (06/16/22 15:16) Magnesium (06/16/22 15:16) Lactic Acid Analyzer (06/16/22 15:16) Chest 1 View Ap/Pa Only (06/16/22 15:16) Diltiazem Drip Pre-Mix (Cardizem Drip Pr (06/16/22 15:30) Diltiazem Injection (Cardizem Injection) (06/16/22 15:30) Covid 19 Inhouse Test (06/16/22 15:18) Influenza A And B By Pcr (06/16/22 15:18) Ed Admission (Communication) (06/16/22 15:31) Ceftriaxone 1 Gm Pre-Mix (Rocephin 1 Gm (06/16/22 16:00) Azithromycin Injection (Zithromax Inject (06/16/22 16:00) Apixaban Tablet (Eliquis Tablet) (06/16/22 16:15) Medications Given in ED Vital Signs/I&O 06/16/22 06/16/22 06/16/22 15:07 15:31 16:48 Temp 36.6 Pulse 148 137 145 Resp 22 24 B/P (MAP) 142/104 (117) 139/92 124/89 Pulse Ox 94 95 O2 Delivery Room Air Room Air Departure Communication (Admissions) Time/Spoke to Admitting Phy: 15:45 Patient with new onset A. fib with RVR. Blood pressure stable started on Cardizem drip upon arrival. Also given Eliquis p.o. Found to have right-sided pleural effusion, possible infiltrates and started on Zithromax, Rocephin for community-acquired pneumonia. Electrolytes are normal EKG is nonischemic and his troponin is negative. His overall heart rate has improved now between 1 20- 1 50 from 1 50-1 70 earlier. His blood pressures have remained stable. He is transported via EMS in stable condition. I did speak with Dr. Butterfield who is no further orders at this time Impression Primary Impression: Atrial fibrillation with RVR Additional Impressions: Dyspnea Qualified Codes: R06.09 - Other forms of dyspnea Orthopnea Peripheral edema Pleural effusion Disposition: 30 STILL A PATIENT Condition: Stable Admissions Decision to Admit Reason: Admit from ER (General) Decision to Admit/Date: Jun 16, 2022 Time/Decision to Admit Time: 15:45 Transfer Transfer Reason: Exceeds level of care Method of Transfer: EMS Departure-Patient Inst. Referrals: ASHLEY GRAHAM DO (PCP) Primary Care Physician KELSIE GAN DO Jun 16, 2022 15:07
[2022-06-16] MEDS ORDERED: dilTIAZem DRIP PRE-MIX 125 ML IV SCH (15:30)
--- NOTE | 2022-06-16 15:31 | Diagnostic Imaging Report ---
INDICATION: Shortness of breath. TECHNIQUE/COMPARISON: A frontal chest was obtained at 3:20 PM with no prior study for comparison. FINDINGS: There is cardiomegaly. There is bibasilar infiltrate. The lung bases are not well seen due to technique. There is some right pleural fluid. There is no pneumothorax. IMPRESSION: Cardiomegaly. Right basilar infiltrate with small right pleural effusion. Somewhat limited study technically. Dictated by: Dictated on workstation # [id number]
[2022-06-16 15:34] LABS: BASOPHILS # (AUTO) 0.1 10^3/uL (0.0-0.1); BASOPHILS % (AUTO) 1 % (0-10); EOSINOPHILS % (AUTO) 1 % (0-10); HEMATOCRIT 43 % (40-54); HEMOGLOBIN 14.1 g/dL (13.3-17.7); LYMPHOCYTES # (AUTO) 2.5 10^3/uL (1.0-4.0); LYMPHOCYTES % (AUTO) 31 % (12-44); MEAN CORPUSCULAR HEMOGLOBIN 30 pg (25-34); MEAN CORPUSCULAR HGB CONC 33 g/dL (32-36); MEAN CORPUSCULAR VOLUME 90 fL (80-99); MEAN PLATELET VOLUME 10.7 fL (9.0-12.2); MONOCYTES # (AUTO) 0.9 10^3/uL (0.0-1.0); MONOCYTES % (AUTO) 11 % (0-12); NEUTROPHILS # (AUTO) 4.6 10^3/uL (1.8-7.8); NEUTROPHILS % (AUTO) 57 % (42-75); PLATELET COUNT 220 10^3/uL (130-400)
[2022-06-16 15:58] LABS: CHLORIDE 101 MMOL/L (98-107); POTASSIUM 4.3 MMOL/L (3.6-5.0); SODIUM 139 MMOL/L (135-145)
[2022-06-16 15:59] LABS: ALANINE AMINOTRANSFERASE 21 U/L (0-55); ALBUMIN 4.2 GM/DL (3.2-4.5); ALKALINE PHOSPHATASE 54 U/L (40-136); BILIRUBIN,TOTAL 1.4 MG/DL (0.1-1.0); BUN/CREATININE RATIO 19; CALCIUM 9.2 MG/DL (8.5-10.1); CARBON DIOXIDE 24 MMOL/L (21-32); CREATININE SERUM 0.89 MG/DL (0.60-1.30); GFR ESTIMATED 86; GLUCOSE 113 MG/DL (70-105); MAGNESIUM 2.1 MG/DL (1.6-2.4); TOTAL PROTEIN 7.2 GM/DL (6.4-8.2)
[2022-06-16] MEDS ORDERED: cefTRIAXone 1 GM PRE-MIX 50 ML IV ONE (16:00)
[2022-06-16] MEDS ORDERED: AZITHROMYCIN INJECTION 500 MG in NS (IVPB) 250 ML IV ONE (16:00)
[2022-06-16] MEDS ORDERED: APIXABAN 5 MG (ELIQUIS) TABLET PO ONE (16:15)
--- NOTE | 2022-06-16 18:20 | Tele-ICU Progress Note ---
Subjective Date Seen by a Provider: Jun 16, 2022 Subjective/Events-last exam This virtual visit was conducted using real time audio/video. Thank you for asking us to see this patient for afib/RVR and possible R pna. Recent events:Transferred from [facility] PMH:no cardiac/rep problems. SH: smoking history: 40 yrs ago. FH: Non-contributory ROS:as in HPI. PE: Comfortable. HR 120-140. VSS. O2 sat 92% on RA HEENT: No obvious masses, adenopathy or JVD. Chest: clear to auscultation. CV: Irreg S1 S2 No murmur or added sounds. Abd: Non-tender. Bowel sounds Y. : Unremarkable. [employer] . 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 No obvious focal findings. Extremities: 1+ edema. Capillary refill < 3 seconds. Skin: unremarkable. Results: Elevated BG 113. CXR: R basal infilt, possible small eff. . Available chart/ vitals / labs / images reviewed. Video assessment done using teleICU camera, rest of exam as per RN. A/P: Critical Care: critically ill patient. Cont. Dilt., ABX. Discussed with RN Anna.. Asked RN to reach out to eICU if any questions or concerns later. Time spent with patient/coordination of care with other health professionals (mins): 15 Sepsis Event Evaluation Height, Weight, BMI Height: '" Weight: lbs. oz. kg; 27.00 BMI Method: Focused Exam Lactate Level 06/16/22 14:25: Lactic Acid Level 1.73 Lactic Acid Level Laboratory Tests Test 06/16/22 14:25 Lactic Acid Level 1.73 MMOL/L (0.50-2.00) Exam Exam Patient acknowledged, consented, and participated in this virtual visit which was conducted using real time audio/video Vital Signs Date Time Temp Pulse Resp B/P (MAP) Pulse Ox O2 Delivery O2 Flow Rate FiO2 06/16/22 18:06 128 06/16/22 16:48 36.6 145 24 124/89 95 Room Air 06/16/22 15:31 137 139/92 06/16/22 15:07 148 22 142/104 (117) 94 Room Air Height & Weight Height: '" Weight: lbs. oz. kg; 27.00 BMI Method: General Appearance: No Apparent Distress HEENT: Normal ENT Inspection, Pharynx Normal Neck: Normal Inspection, Non Tender Respiratory: Chest Non Tender, No Accessory Muscle Use, No Respiratory Distress, Crackles Cardiovascular: No Murmur, Normal Peripheral Pulses, Irregularly Irregular, Other (2+ pitting edema bilateral lower extremities) Extremity: Normal Capillary Refill, Normal Range of Motion, Swelling Neurologic/Psychiatric: Alert, Oriented x3 Skin: Normal Color, Warm/Dry Lymphatic: No Adenopathy Results Lab Laboratory Tests 06/16/22 14:25 Assessment/Plan Assessment/Plan See free text. Critical Care: Critically Ill Patient AUGUSTO HOPPER MD Jun 16, 2022 18:20
[2022-06-16] MEDS ORDERED: BISACODYL 10 MG SUPP (DULCOLAX) PR PRN (18:30)
[2022-06-16] MEDS ORDERED: polyethylene glycoL POWDER 17 GM (MIRALAX) PACK PO PRN (18:30)
[2022-06-16] MEDS ORDERED: CATHETER FLUSH 10 ML SYR IVP PRN (18:45)
[2022-06-16 19:26] VITALS: BP 118/94
[2022-06-16] MEDS: dilTIAZem DRIP PRE-MIX 125 ML IV SCH (19:41)
[2022-06-16] MEDS ORDERED: RT-ALBUTEROL SULF 2.5 MG/3 ML PRE-MIX VIAL INH PRN (19:45)
[2022-06-16] MEDS: ENOXAPARIN 100 MG/1 ML (LOVENOX) SYR SC SCH (20:11)
[2022-06-16] MEDS: MELATONIN 3 MG TABLET PO PRN (20:54)
[2022-06-16] MEDS: ACETAMINOPHEN 325 MG TABLET PO PRN (20:54)
[2022-06-16] MEDS: ANTACID SUSP 30 ML UDC (MYLANTA) PO PRN (20:54)
[2022-06-16] MEDS: ONDANSETRON 4 MG/2 ML (SDV) Z0FRAN IV PRN (21:51)
[2022-06-16] MEDS: CATHETER FLUSH 10 ML SYR IVP SCH (22:00)
--- NOTE | 2022-06-16 23:36 | Progress Note ---
Standard Progress Note Progress Notes/Assess & Plan Date Seen by a Provider: Jun 16, 2022 Time Seen by a Provider: 23:35 Progress/Assessment & Plan called for nausea, got IV Zofran 4 mg 90 min ago but still has nausea QTc is326 will give Mylicon and if no improvement will repeat IV Zofran MD SHAZIA Dueñas JOSEPH K MD Jun 16, 2022 23:36
[2022-06-16] MEDS ORDERED: SIMETHICONE 80 MG (MYLICON) CHEW PO ONE (23:45)
--- NOTE | 2022-06-17 01:03 | Progress Note ---
Standard Progress Note Progress Notes/Assess & Plan Date Seen by a Provider: Jun 17, 2022 Time Seen by a Provider: 01:02 Progress/Assessment & Plan Not much improvement with Mylicon, will give another dose of Zofran 4 mg as QTc is ok MD SHAZIA Dueñas JOSEPH K MD Jun 17, 2022 01:03
[2022-06-17] MEDS ORDERED: ONDANSETRON 4 MG/2 ML (SDV) Z0FRAN IVP ONE (01:15)
[2022-06-17] MEDS: dilTIAZem DRIP PRE-MIX 125 ML IV SCH ×3 (01:51→18:05)
--- NOTE | 2022-06-17 03:28 | Progress Note ---
Standard Progress Note Progress Notes/Assess & Plan Date Seen by a Provider: Jun 17, 2022 Time Seen by a Provider: 03:27 Progress/Assessment & Plan still has some nausea despite IV Zofran x 2 and Mylicon, will get KUB MD SHAZIA Dueñas JOSEPH K MD Jun 17, 2022 03:28
[2022-06-17 03:56] LABS: HEMATOCRIT 43 % (40-54); HEMOGLOBIN 13.9 g/dL (13.3-17.7); MEAN CORPUSCULAR HEMOGLOBIN 30 pg (25-34); MEAN CORPUSCULAR HGB CONC 32 g/dL (32-36); MEAN CORPUSCULAR VOLUME 93 fL (80-99); MEAN PLATELET VOLUME 10.8 fL (9.0-12.2); PLATELET COUNT 218 10^3/uL (130-400)
[2022-06-17 04:10] LABS: POTASSIUM 4.1 MMOL/L (3.6-5.0)
[2022-06-17 04:12] LABS: CALCIUM 9.3 MG/DL (8.5-10.1)
[2022-06-17 04:16] LABS: CREATININE SERUM 1.11 MG/DL (0.60-1.30)
[2022-06-17] MEDS: CATHETER FLUSH 10 ML SYR IVP SCH ×3 (06:00→22:54)
[2022-06-17] MEDS ORDERED: NS IV 500 ML 500 ML IV PRN (06:30)
[2022-06-17] MEDS: ENOXAPARIN 100 MG/1 ML (LOVENOX) SYR SC SCH (06:37)
[2022-06-17] MEDS ORDERED: FUROSEMIDE 40 MG/4 ML INJ (LASIX) IVP SCH (07:00)
--- NOTE | 2022-06-17 07:10 | Diagnostic Imaging Report ---
INDICATION: Nausea KUB 5:49 AM Bowel gas pattern is normal. There are no pathologic masses or calcifications. IMPRESSION: Unremarkable abdomen. Dictated by: Dictated on workstation # [id number]
[2022-06-17] MEDS: RT-ALBUTEROL SULF 2.5 MG/3 ML PRE-MIX VIAL INH SCH ×2 (07:12→19:27)
--- NOTE | 2022-06-17 07:32 | History & Physical-Hospitalist ---
History of Present Illness HPI/Chief Complaint Patient is 81-year-old male with past medical history of BPH who presented to the emergency department due to shortness of breath. He states his symptoms started a couple of weeks ago and he was previously seen in Dr. Roberts in [place] but switched to Dr. SOLANO and saw his nurse practitioner Malcom yesterday. On evaluation there he was found to be quite tachycardic and EKG revealed new onset atrial fibrillation. He was referred to the emergency department was found to be in A. fib with RVR. He was started on a Cardizem drip and was admitted to the ICU here. He reports his shortness of breath has improved but he has had significant nausea and vomiting overnight with some abdominal pain. He is quite jittery and states he believes his nausea is due to his nerves as he does not like going to the doctor being in the hospital. He remains in atrial fibrillation with rates in the 110s. Date Seen 06/17/22 Time Seen by a Provider: 07:32 Attending Physician Pipo Solano DO PCP Admitting Physician: Madalyn Miller MD Attending Physician: Madalyn Miller MD Referring Physician Date of Admission Jun 16, 2022 at 17:51 Home Medications & Allergies Home Medications Reviewed patient Home Medication Reconciliation performed by pharmacy medication reconciliations field service poultry technician and/or nursing. Patients Allergies have been reviewed. Allergies Allergies Coded Allergies No Known Drug Allergies (Unverified07/27/19) Past Dwdoewc-Rojdsj-Nnmkcx Hx Patient Social History Marrital Status: Tobacco Use?: Yes Smoking Status: Former Smoker Smokeless Tobacco Frequency: Former User Use of E-Cig and/or Vaping dev: No Substance use?: No Alcohol Use?: No Pt feels they are or have been: No Immunizations Up To Date Date of Influenza Vaccine: Apr 23, 2019 Seasonal Allergies Seasonal Allergies: No Current Status Advance Directives: Yes Advance Directive Location: Home Communicates: Verbally Primary Language: Khmer Preferred Spoken Language: Khmer Is interpretation needed?: No Sensory deficits: Vision impairment Implanted or Applied Medical D: None Past Medical History Surgeries: Prostatectomy, Tonsillectomy Neuropathy Sexually Transmitted Disease: No HIV/AIDS: No Benign Prostatic Hyperpl, Prostate Problems Loss of Vision: Denies Hearing Impairment: Denies Blood Disorders: No Adverse Reaction/Blood Tranf: No (N/A) Family Medical History Reviewed Nursing Family Hx Heart Disease (sister) Review of Systems Constitutional: No chills, No fever EENTM: no symptoms reported Respiratory: No cough; dyspnea on exertion, short of breath Cardiovascular: No chest pain, No edema, No palpitations Gastrointestinal: abdominal pain, nausea, vomiting Genitourinary: no symptoms reported Musculoskeletal: no symptoms reported Skin: no symptoms reported Psychiatric/Neurological: No Symptoms Reported Physical Exam Physical Exam Vital Signs Vital Signs - First Documented 06/16/22 06/16/22 06/16/22 06/16/22 15:07 16:48 19:26 22:49 Temp 36.6 Pulse 148 Resp 22 B/P (MAP) 142/104 (117) Pulse Ox 94 O2 Delivery Room Air O2 Flow Rate 1.00 FiO2 21 Capillary Refill : Height, Weight, BMI Height: '" Weight: lbs. oz. kg; 26.56 BMI Method: General Appearance: No Apparent Distress, WD/WN HEENT: PERRL/EOMI, Moist Mucous Membranes Neck: Normal Inspection, Supple Respiratory: Lungs Clear, No Accessory Muscle Use, No Respiratory Distress Cardiovascular: No Murmur, Irregularly Irregular, Tachycardia Gastrointestinal: Normal Bowel Sounds, Non Tender, Soft Extremity: Normal Capillary Refill, No Calf Tenderness, Pedal Edema, Swelling Neurologic/Psychiatric: Alert, Oriented x3, Normal Mood/Affect Skin: Normal Color, Warm/Dry Results Results/Procedures Labs Laboratory Tests 06/16/22 14:25 06/17/22 03:47 Patient resulted labs reviewed. Imaging [facility] [place] [place] NAME: KVNG FLORESDRLISSETTE Osborn [facility] REC#: [id number] PT STATUS: REG ER : 1940 PHYSICIAN: KELSIE GAN DO ADMIT DATE: 06/16/22/ER FS Signed Date of Exam:06/16/22 CHEST 1 VIEW AP/PA ONLY INDICATION: Shortness of breath. TECHNIQUE/COMPARISON: A frontal chest was obtained at 3:20 PM with no prior study for comparison. FINDINGS: There is cardiomegaly. There is bibasilar infiltrate. The lung bases are not well seen due to technique. There is some right pleural fluid. There is no pneumothorax. IMPRESSION: Cardiomegaly. Right basilar infiltrate with small right pleural effusion. Somewhat limited study technically. Dictated by: Dictated on workstation # [id number] Dict: 06/16/22 1527 Trans: 06/16/221699 [id number] Interpreted by: ROSALIO SAUCEDO MD Electronically signed by: ROSALIO SAUCEDO MD 06/16/221699 Assessment/Plan Admission Diagnosis new onset a fib RVR Admission Status: Inpatient Order (span 2 midnights) Reason for Inpatient Admission: see below Assessment and Plan new onset a fib w/ RVR pleural effusion Cardizem gtt Cardiology consulted, appreciate recs Eliquis for stroke prophylaxis echo Abd pain and nausing Zofran prn Phenergan as second line agent Complains of mostly anxiety so hydroxyzine added as well KUB negative BPH Unsure if still on Flomax- will resume if on med rec DVT ppx: Eliquis Diagnosis/Problems Diagnosis/Problems (1) Atrial fibrillation with RVR (2) Pleural effusion Status: Acute (3) Orthopnea Status: Acute (4) BPH (benign prostatic hyperplasia) Copy Copies To 1: PIPO SOLANO KATELYN M MD Jun 17, 2022 07:32
[2022-06-17] MEDS: ONDANSETRON 4 MG/2 ML (SDV) Z0FRAN IV PRN (08:44)
[2022-06-17] MEDS: ACETAMINOPHEN 325 MG TABLET PO PRN (08:45)
--- NOTE | 2022-06-17 09:00 | Physical Therapy Evaluation ---
PT Evaluation-General Medical Diagnosis Admission Date Jun 16, 2022 at 17:51 Medical Diagnosis: afib Onset Date: Jun 16, 2022 Therapy Diagnosis Therapy Diagnosis: impaired mobility, strength Precautions Precautions/Isolations: Standard Precautions Referral Physician: Angela Reason for Referral: Evaluation/Treatment Medical History Additional Medical History Past Medical History Surgeries: Prostatectomy, Tonsillectomy Neuropathy Sexually Transmitted Disease: No HIV/AIDS: No Benign Prostatic Hyperpl, Prostate Problems Loss of Vision: Denies Hearing Impairment: Denies Blood Disorders: No Adverse Reaction/Blood Tranf: No (N/A) Reviewed History: Yes Social History Current Living Status: Spouse Entry Into Home: Ramp Prior Prior Level of Function SCALE: Activities may be completed with or without assistive devices. 2-Jtwmkfezrl-udpzzao completes the activity by him/herself with no assistance from a helper. 5-Set-up or Clean-up Assistance-helper sets up or cleans up; patient completes activity. [place] assists only prior to or following the activity. 4-Supervision or Touching Assistance-helper provides verbal cues and/or touchi ng/steadying and/or contact guard assistance as patient completes activity. Assistance may be provided throughout the activity or intermittently. 3-Partial/Moderate Assistance-helper does LESS THAN HALF the effort. [place] lifts, holds or supports trunk or limbs, but provides less than half the effort. 2-Substantial/Maximal Assistance-helper does MORE THAN HALF the effort. [place] lifts or holds trunk or limbs and provides more than half the effort. 0-Pkwkbbulv-wrpdjt does ALL the effort. Patient does none of the effort to complete the activity. Or, the assistance of 2 or more helpers is required for the patient to complete the activity. If activity was not attempted, code reason: 7-Patient Refused. 9-Not Applicable-not attempted and the patient did not perform the activity before the current illness, exacerbation or injury. 10-Not Attempted due to Environmental Limitations-(lack of equipment, weather restraints, etc.). 88-Not Attempted due to Medical Conditions or Safety Concerns. Bed Mobility: 6 Transfers (B,C,W/C): 6 Gait: 6 Indoor Mobility (Ambulation): Independent PT Evaluation-Current Subjective Patient sitting in recliner pre tx, has no pain but is nauseated and has been vomiting all night, patient has an emesis basin by him with vomit in it. Pt/Family Goals to be independent at home Objective Patient Orientation: Person, Place, Situation Attachments: Oxygen, IV ROM/Strength ROM Lower Extremities WNL Strength Lower Extremities LLE (hip flexion 3+/5, knee flexion 4+/5, knee extension 4+/5, dorsiflexion 4/5), RLE (hip flexion 3+/5, knee flexion 4+/5, knee extension 4+/5, dorsiflexion 4/5) Sensory Vision: Functional Hearing: Functional Sensation Right Lower Extremit: Intact Sensation Left Lower Extremity: Intact Transfers Sit to Stand (QC): 4 CGA for sit to stand, patient was able to stand for about a minute before needing to sit back down due to nausea Balance Sitting Static: Normal Sitting Dynamic: Normal Standing Static: Fair Treatment seated BLE exercise x20 (AP, LAQ) Assessment/Needs Patient in recliner post tx with nurse call, phone, tray, all needs met. Patient has impaired mobility and strength. CGA for sit to stand. 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 Warp Knitting Machine Operator Goals PT Jail Goals Time Frame: Jun 24, 2022 Roll Left & Right (QC): 6 Sit to Lying (QC): 6 Lying-Sitting on Side/Bed(QC): 6 Sit to Stand (QC): 5 Chair/Kqg-aj-Gtfip Xfer(QC): 5 Walk 10 feet (QC): 5 Walk 50ft with 2 Turns (QC): 5 PT Plan Problem List Problem List: Activity Tolerance, Functional Strength, Safety, Balance, Gait, Transfer, Bed Mobility, ROM Treatment/Plan Treatment Plan: Continue Plan of Care Treatment Plan: Bed Mobility, Education, Functional Activity Brynn, Functional Strength, Group Therapy, Gait, Safety, Therapeutic Exercise, Transfers Treatment Duration: Jun 24, 2022 Frequency: 6 times per week Estimated Hrs Per Day: .25 hour per day Patient and/or Family Agrees t: Yes Safety Risks/Education Patient Education: Correct Positioning, Safety Issues Teaching Recipient: Patient Teaching Methods: Demonstration, Discussion Response to Teaching: Reinforcement Needed Discharge Recommendations Plan Patient will perform bed mobility and transfer training, balance and endurance training, functional strengthening, stair training, gait training, and education, to improve functional mobility and independence at home. Therapy Discharge Recommendati: Home & Family, Post Acute PT Time Time In: 836 Time Out: 846 DATE: Jun 17, 2022 Total Billed Treatment Time: 10 Total Billed Treatment 1 visit EVM 10' KAREN NAILS PT Jun 17, 2022 08:59
--- NOTE | 2022-06-17 09:24 | Tele-ICU Progress Note ---
Subjective Date Seen by a Provider: Jun 17, 2022 Subjective/Events-last exam This virtual visit was conducted using real time audio/video. Thank you for asking us to see this patient for afib/RVR and possible R pna. Admitted 06/16/2022. Recent events:Transferred from [facility] PMH:no cardiac/resp problems. SH: smoking history: 40 yrs ago. FH: Non-contributory ROS:as in HPI. PE: Comfortable. HR 100-110 Afib: better. O2 sat 94% on 2 LPM HEENT: No obvious masses, adenopathy or JVD. Chest: clear to auscultation. CV: Irreg S1 S2 No murmur or added sounds. Abd: Non-tender. Bowel sounds Y. : Unremarkable. [facility] . 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 No obvious focal findings. Extremities: 1-2+ edema. Capillary refill < 3 seconds. Skin: unremarkable. Results: Elevated BG 158. CXR: R basal infilt, possible small eff. . Available chart/ vitals / labs / images reviewed. Video assessment done using teleICU camera, rest of exam as per RN. A/P: Critical Care: critically ill patient. Cont. Dilt., Lasix, Cathleen., ABX. Adding beta simon. Discussed with MICHELLE Ivan. Asked RN to reach out to eICU if any questions or concerns later. Time spent with patient/coordination of care with other health professionals (mins): 15 Sepsis Event Evaluation Height, Weight, BMI Height: '" Weight: lbs. oz. kg; 26.56 BMI Method: Focused Exam Lactate Level 06/16/22 14:25: Lactic Acid Level 1.73 Exam Exam Patient acknowledged, consented, and participated in this virtual visit which was conducted using real time audio/video Vital Signs Date Time Temp Pulse Resp B/P (MAP) Pulse Ox O2 Delivery O2 Flow Rate FiO2 06/17/22 09:00 124 22 111/76 (88) 92 Nasal Cannula 2.00 06/17/22 08:45 100 124/112 06/17/22 08:00 36.0 06/17/22 08:00 117 19 120/83 (95) 93 Nasal Cannula 2.00 06/17/22 07:12 93 Nasal Cannula 2.00 06/17/22 07:00 98 20 111/82 (92) 91 Nasal Cannula 2.00 06/17/22 07:00 100 06/17/22 06:00 121 28 124/112 (116) 90 Nasal Cannula 2.00 06/17/22 05:00 116 20 107/94 (98) 90 Nasal Cannula 2.00 06/17/22 04:11 Nasal Cannula 2.00 06/17/22 04:00 109 21 110/79 (89) 91 Nasal Cannula 1.00 06/17/22 04:00 95 Nasal Cannula 2.00 06/17/22 03:00 112 24 111/94 (100) 91 Nasal Cannula 1.00 06/17/22 02:00 133 24 113/97 (102) 92 Nasal Cannula 1.00 06/17/22 01:51 123 06/17/22 01:00 131 18 110/87 (95) 89 Nasal Cannula 1.00 06/17/22 01:00 36.2 06/17/22 01:00 125 06/17/22 00:00 95 24 108/84 (92) 90 Nasal Cannula 1.00 06/16/22 23:59 94 Nasal Cannula 1.00 06/16/22 23:00 96 26 114/93 (100) 90 Nasal Cannula 1.00 06/16/22 22:49 Nasal Cannula 1.00 06/16/22 22:00 124 19 105/67 (80) 90 Room Air 06/16/22 21:00 134 28 114/80 (91) 92 Room Air 06/16/22 20:00 93 Room Air 06/16/22 20:00 138 28 124/98 (107) 86 Room Air 06/16/22 19:41 131 06/16/22 19:36 36.8 06/16/22 19:26 36.5 141 94 21 06/16/22 19:00 138 06/16/22 19:00 140 34 106/88 (94) 90 Room Air 06/16/22 18:54 94 Room Air 06/16/22 18:30 129 28 118/94 (102) 92 Room Air 06/16/22 18:15 141 28 130/99 (109) 93 Room Air 06/16/22 18:06 128 06/16/22 18:00 36.5 146 12 127/101 (110) 93 Room Air 06/16/22 16:48 36.6 145 24 124/89 95 Room Air 06/16/22 15:31 137 139/92 06/16/22 15:07 148 22 142/104 (117) 94 Room Air I & O 06/17/22 07:00 Intake Total 1005 ml Output Total 75 ml Balance 930 ml Height & Weight Height: '" Weight: lbs. oz. kg; 26.56 BMI Method: General Appearance: No Apparent Distress HEENT: Normal ENT Inspection, Pharynx Normal Neck: Normal Inspection, Non Tender Respiratory: Chest Non Tender, No Accessory Muscle Use, No Respiratory Distress, Crackles Cardiovascular: No Murmur, Normal Peripheral Pulses, Irregularly Irregular, Other (2+ pitting edema bilateral lower extremities) Extremity: Normal Capillary Refill, Normal Range of Motion, Swelling Neurologic/Psychiatric: Alert, Oriented x3 Skin: Normal Color, Warm/Dry Lymphatic: No Adenopathy Results Lab Laboratory Tests 06/16/22 14:25 06/17/22 03:47 Assessment/Plan Assessment/Plan See free text. Critical Care: Critically Ill Patient AUGUSTO HOPPER MD Jun 17, 2022 09:24
--- NOTE | 2022-06-17 09:31 | Consultation-Cardiology ---
HPI-Cardiology Cardiology Consultation: Date of Consultation 06/17/22 Time Seen by a Provider: 09:00 Date of Admission 06-16-22 Attending Physician Pipo Solano DO Admitting Physician Admitting Physician: Madalyn Miller MD Attending Physician: Madalyn Miller MD Consulting Physician Gracie Butterfield MD HPI: Chief Complaint: Newly dx a-fib with RVR Mr. Rob is an 81 yr old male admitted to ICU9 from [facility] ED. He has family x 2 at the bedside. He is currently nauseated with abd cramping and emesis. Family reports the week before Thanksgiving he began to have n/v/d. He had increasing weakness. He reports he developed bilat LE swelling at approx the same time. He reports he was having some palpitations during this time as well. He denies any c/o CP, SOB, syncope or near syncope. Review of Systems-Cardiology Review of Systems Constitutional: No chills, No fever; malaise Eyes: No vision change Ears/Nose/Throat: No epistaxis, No ulcerations Respiratory: As described under HPI Cardiovascular: As described under HPI Gastrointestinal: As described under HPI Genitourinary: No dysuria, No hematuria Musculoskeletal: no symptoms reported Skin: No rash on exposed areas, No ulcerations on exposed areas Psychiatric/Neurological: anxiety; No seizure, No focal weakness, No syncope Hematologic: No bleeding abnormalities KIJ-Ruiikv-Mhzhap Hx Patient Social History Smoking Status: Former Smoker 2nd Hand Smoke Exposure: Yes Have you traveled recently?: No Alcohol Use?: No Pt feels they are or have been: No Immunizations Up To Date Date of Influenza Vaccine: Apr 23, 2019 Past Medical History PMH As described under Assessment. Family Medical History Family Medical History: He reports his mother had a pacemaker. He reports 3 sisters with "heart trouble" but does not know the details. Allergies and Home Medications Allergies Coded Allergies: No Known Drug Allergies (Unverified , 07/27/19) Patient Home Medication List Gabapentin (Gabapentin) 300 Mg Capsule, 300 MG PO HS, (Reported) Entered as Reported by: CHESTER SNIDER on 07/27/19 1205 Sulfamethoxazole/Trimethoprim (Bactrim Ds Tablet) 1 Each Tablet, 1 EACH PO BID Prescribed by: JOLIE BAUTISTA on 09/18/19 0949 Tamsulosin HCl (Flomax) 0.4 Mg Cap, 0.4 MG PO DAILY Prescribed by: JOLIE BAUTISTA on 09/18/19 09 Physical Exam-Cardiology Physical Exam Vital Signs/I&O 06/18/22 06/18/22 06/18/22 06/18/22 02:00 02:29 04:00 04:00 Temp 36.3 Pulse 114 83 Resp 33 B/P (MAP) 118/96 (103) 113/88 Pulse Ox 91 95 O2 Delivery Nasal Cannula Nasal Cannula O2 Flow Rate 2.00 2.00 06/18/22 06/18/22 06/18/22 06/18/22 05:00 06:00 07:00 07:00 Pulse 105 93 128 112 Resp 30 34 35 B/P (MAP) 143/83 (103) 108/95 (99) 121/86 (98) Pulse Ox 93 93 93 O2 Delivery Nasal Cannula Nasal Cannula Nasal Cannula O2 Flow Rate 2.00 2.00 2.00 06/18/22 06/18/22 06/18/22 06/18/22 08:00 08:00 08:02 09:00 Temp 36.1 Pulse 105 97 Resp 36 32 B/P (MAP) 128/85 (99) 123/93 (103) Pulse Ox 91 93 94 O2 Delivery Nasal Cannula Nasal Cannula Nasal Cannula O2 Flow Rate 2.00 2.00 2.00 06/18/22 06/18/22 06/18/22 06/18/22 10:00 11:00 11:06 12:00 Pulse 125 101 125 91 Resp 34 35 34 B/P (MAP) 111/89 (96) 127/82 (97) 111/89 117/80 (92) Pulse Ox 93 92 92 O2 Delivery Nasal Cannula Nasal Cannula Nasal Cannula O2 Flow Rate 2.00 2.00 2.00 06/18/22 12:00 Temp 36.1 06/18/22 00:00 Intake Total 750 ml Output Total 50 ml Balance 700 ml Capillary Refill : Constitutional: AAO x 3, well-developed, well-nourished HEENT: PERRL, hearing is well preserved, oral hygience is good Neck: No carotid bruit; carotid pulses are 2 + bilaterally Respiratory: No accessory muscle use, No respiratory distress; chest expansion is symmetric, chest is bilaterally symmetric, lungs clear to auscultation Cardiovascular: irregularly irregular; No JVD; S1 and S2 Gastrointestinal: soft, distended; No guarding; audible bowel sounds (hyperactive BS) Extremities: other Neurologic/Psychiatric: grossly intact (moves all extremities) Skin: No rash on exposed areas, No ulcerations on exposed areas Data Review Labs Laboratory Tests 06/18/22 03:54: White Blood Count 15.1H, Red Blood Count 4.73, Hemoglobin 14.1, Hematocrit 44, Mean Corpuscular Volume 92, Mean Corpuscular Hemoglobin 30, Mean Corpuscular Hemoglobin Concent 32, Red Cell Distribution Width 13.7, Platelet Count 254, Mean Platelet Volume 10.8, Sodium Level 143, Potassium Level 4.6, Chloride Level 105, Carbon Dioxide Level 17L, Anion Gap 21H, Blood Urea Nitrogen 38H, Creatinine 2.31H, Estimat Glomerular Filtration Rate 28, BUN/Creatinine Ratio 16, Glucose Level 137H, Calcium Level 9.8 Microbiology 06/16/22 MRSA Screen - Final, Complete MRSA not isolated Radiology NAME: WILFREDO ROB [facility] REC#: [id number] PT STATUS: REG ER : 1940 PHYSICIAN: KELSIE GAN DO ADMIT DATE: 06/16/22/ER FS Signed Date of Exam:06/16/22 CHEST 1 VIEW AP/PA ONLY INDICATION: Shortness of breath. TECHNIQUE/COMPARISON: A frontal chest was obtained at 3:20 PM with no prior study for comparison. FINDINGS: There is cardiomegaly. There is bibasilar infiltrate. The lung bases are not well seen due to technique. There is some right pleural fluid. There is no pneumothorax. IMPRESSION: Cardiomegaly. Right basilar infiltrate with small right pleural effusion. Somewhat limited study technically. Dictated by: Dictated on workstation # [id number] Dict: 06/16/22 1527 Trans: 06/16/221699 [id number] Interpreted by: ROSALIO SAUCEDO MD Electronically signed by: ROSALIO SAUCEDO MD 06/16/221699 NAME: WILFREDO ROB [facility] REC#: [id number] PT STATUS: ADM IN : 1940 PHYSICIAN: CELINA MCCRAY MD ADMIT DATE: 06/16/22/ICU Draft Date of Exam:06/17/22 ABDOMEN/KUB 1VIEW INDICATION: Nausea KUB 5:49 AM Bowel gas pattern is normal. There are no pathologic masses or calcifications. IMPRESSION: Unremarkable abdomen. Dictated on workstation # [id number] Dict: 06/17/22 0707 Trans: 06/17/22 0710 [facility] [id number] Interpreted by: VINCENT SCHULTZ MD Electronically signed by: ECG Impression ECG Initial ECG Impression: Atrial Fibrillation w/RVR A/P-Cardiology Assessment/Admission Diagnosis Newly dx a-fib with RVR - HR improved with Cardizem gtt, but not well controlled - OAC with Eliquis started on 06-16-22 Abd discomfort with n/v/d - undetermined etiology - management per medical services Discussion and Recomendations Newly dx a-fib with RVR - currently on Cardizem gtt - Continue OAC Abdominal pain with nausea - undetermined etiology - management per medical services CRYSTAL MORENO Jun 17, 2022 09:31
[2022-06-17] MEDS: hydrOXYzine (ATARAX) 10 MG TAB PO PRN ×2 (09:53→23:02)
[2022-06-17] MEDS ORDERED: PROMETHAZINE 25 MG (PHENERGAN) TAB PO PRN (10:30)
--- NOTE | 2022-06-17 11:14 | Occupational Therapy Eval ---
OT Evaluation-General/PLF Medical Diagnosis Admission Date Jun 16, 2022 at 17:51 Medical Diagnosis: afib Onset Date: Jun 16, 2022 Therapy Diagnosis Therapy Diagnosis: reduced adl status, weakness Precautions Precautions/Isolations: Fall Prevention, Standard Precautions Referral Physician: Angela Referral Reason: Evaluation/Treatment Medical History Pertinent Medical History: Neuropathy Current History Pt presented to hospital with c/o n/v/d, weakness, and LE swelling. Per patient, he lives with his in a single story home. He was indep with adls and shares iadl responsibilities with his . He does not use any AD at baseline. Reviewed History: Yes Social History Home: Single Level Current Living Status: Spouse Entry Into Home: Ramp ADL-Prior Level of Function SCALE: Activities may be completed with or without assistive devices. 1-Hvkohmjytp-suwuilb completes the activity by him/herself with no assistance from a helper. 5-Set-up or Clean-up Assistance-helper sets up or cleans up; patient completes activity. Lejunior assists only prior to or following the activity. 4-Supervision or Touching Assistance-helper provides verbal cues and/or touching/steadying and/or contact guard assistance as patient completes activity. Assistance may be provided throughout the activity or intermittently. 3-Partial/Moderate Assistance-helper does LESS THAN HALF the effort. Lejunior lifts, holds or supports trunk or limbs, but provides less than half the effort. 2-Substantial/Maximal Assistance-helper does MORE THAN HALF the effort. Lejunior lifts or holds trunk or limbs and provides more than half the effort. 5-Onkkjllbp-cqphck does ALL the effort. Patient does none of the effort to complete the activity. Or, the assistance of 2 or more helpers is required for the patient to complete the activity. If activity was not attempted, code reason: 7-Patient Refused. 9-Not Applicable-not attempted and the patient did not perform the activity before the current illness, exacerbation or injury. 10-Not Attempted due to Environmental Limitations-(lack of equipment, weather restraints, etc.). 88-Not Attempted due to Medical Conditions or Safety Concerns. Self Care: Independent Functional Cognition: Independent DME/Equipment: Bath Chair, Grab Bars, Shower Drive Self: Yes OT Current Status Subjective Pt reports that he has been nauseous all morning, still agreeable to evaluation. Appearance Pt left sitting in recliner, family in the room at OT departure. Mental Status/Objective Patient Orientation: Person, Place, Situation Attachments: IV, Oxygen, SCD's, Telemetry Current Glasses/Contacts: Yes Hand Dominance: Right Upper Extremity ROM WFL Upper Extremity Strength 4/5 throughout ADL-Treatment Eating (QC): 5 On/Off Footwear (QC): 3 Pt sitting on multiple lines at OT arrival. Sit<>stand: CGA, able to stand only long enough for OT to move lines from chair. Heavy reliance on BUE support to maintain balance. Pt reports feeling very weak. At this time, anticipate assist needed for standing functional tasks requiring use of 1-2 UE's. Pt was able to demonstrate ability to reach toes but fatigues quickly. Education OT Patient Education: Correct positioning, Energy conservation, Modified ADL techniques, Purpose of tx/functional activities, Safety issues, Transfer techniques Teaching Recipient: Patient, Family Teaching Methods: Demonstration, Discussion Response to Teaching: Verbalize Understanding, Return Demonstration, Reinforcement Needed OT Back Seam Stitcher Goals Penitentiary Goals Time Frame: Jun 28, 2022 Eating (QC): 6 Oral Hygiene (QC): 6 Toileting Hygiene (QC): 6 Shower/Bathe Self (QC): 4 Upper Body Dressing (QC): 5 Lower Body Dressing (QC): 4 On/Off Footwear (QC): 5 Additional Goals: 1-Demonstrate ADL Tasks, 2-Verbalize Understanding, 3-ImproveStrength/Brynn 1=Demonstrate adherence to instructed precautions during ADL tasks. 2=Patient will verbalize/demonstrate understanding of assistive devices/modifications for ADL. 3=Patient will improve strength/tolerance for activity to enable patient to perform ADL's. OT Education/Plan Problem List/Assessment Assessment: Decreased Activ Tolerance, Decreased UE Strength, Edema, Impaired Funct Balance, Impaired I ADL's, Impaired Self-Care Skills Discharge Recommendations Plan/Recommendations: Continue POC Target Placement ongoing assessment. Treatment Plan/Plan of Care Treatment,Training & Education: Yes Patient would benefit from OT for education, treatment and training to promote independence in ADL's, mobility, safety and/or upper extremity function for ADL 's. Plan of Care: ADL Retraining, Functional Mobility, Group Exercise/Act as Ind, UE Funct Exercise/Act Treatment Duration: Jun 28, 2022 Frequency: 3 times per week (3-5x/week) Estimated Hrs Per Day: .25 hour per day Agreement: Yes Rehab Potential: Fair Time Start Time: 10:53 Stop Time: 11:04 DATE: Jun 17, 2022 Total Time Billed (hr/min): 11 Billed Treatment Time 1 visit Gema Saleh OT Jun 17, 2022 11:14
[2022-06-17] MEDS: meTOprolol 5 MG/5 ML (LOPRESSOR) VIAL IV SCH ×3 (11:40→23:53)
[2022-06-17] MEDS ORDERED: SCOPOLAMINE 1.5 MG (TRANSDERM-SCOP) PATCH TD NR (13:30)
[2022-06-17] MEDS ORDERED: PROCHLORPERAZINE 10 MG/2ML INJ (COMPAZINE) IV PRN (13:30)
[2022-06-17] MEDS: ANTACID SUSP 30 ML UDC (MYLANTA) PO PRN (16:48)
--- NOTE | 2022-06-17 17:13 | Consultation-Cardiology ---
HPI-Cardiology Cardiology Consultation: Date of Consultation 06/17/22 Time Seen by a Provider: 09:15 Date of Admission Attending Physician Pipo Solano DO Admitting Physician Admitting Physician: Madalyn Miller MD Attending Physician: Madalyn Miller MD Consulting Physician JONEL LUNDY MD, MA, FACP, FACC, FSCAI, CCDS Physician requesting Consult: Dr Miller HPI: Chief Complaint: Reason for Card consult: Newly dx a-fib with RVR Mr. Rob is an 81 yr old male admitted to ICU9 from [facility] ED. He has family x 2 at the bedside. He is currently nauseated with abd cramping and emesis. Family reports the week before Thanksgiving he began to have n/v/d. He had increasing weakness. He reports he developed bilat LE swelling at approx the same time. He reports he was having some palpitations during this time as well. He denies any c/o CP, SOB, syncope or near syncope. Review of Systems-Cardiology Review of Systems Constitutional: No chills, No fever; malaise Eyes: No vision change Ears/Nose/Throat: No epistaxis, No ulcerations Respiratory: As described under HPI Cardiovascular: As described under HPI Gastrointestinal: As described under HPI Genitourinary: No dysuria, No hematuria Musculoskeletal: no symptoms reported Skin: No rash on exposed areas, No ulcerations on exposed areas Psychiatric/Neurological: anxiety; No seizure, No focal weakness, No syncope Hematologic: No bleeding abnormalities SOV-Highfq-Vpeehw Hx Patient Social History Marrital Status: Smoking Status: Former Smoker 2nd Hand Smoke Exposure: Yes Have you traveled recently?: No Alcohol Use?: No Pt feels they are or have been: No Immunizations Up To Date Date of Influenza Vaccine: Apr 23, 2019 Past Medical History PMH As described under Assessment. Family Medical History Family Medical History: He reports his mother had a pacemaker. He reports 3 sisters with "heart trouble" but does not know the details. Allergies and Home Medications Allergies Coded Allergies: No Known Drug Allergies (Unverified , 07/27/19) Patient Home Medication List Home Medication List Reviewed: Yes Gabapentin (Gabapentin) 300 Mg Capsule, 300 MG PO HS, (Reported) Entered as Reported by: CHESTER SNIDER on 07/27/19 1205 Sulfamethoxazole/Trimethoprim (Bactrim Ds Tablet) 1 Each Tablet, 1 EACH PO BID Prescribed by: JOLIE BAUTISTA on 09/18/1949 Tamsulosin HCl (Flomax) 0.4 Mg Cap, 0.4 MG PO DAILY Prescribed by: JOLIE BAUTISTA on 09/18/19948 Physical Exam-Cardiology Physical Exam Vital Signs/I&O 06/17/22 06/17/22 06/17/22 06/17/22 06:00 07:00 07:00 07:12 Pulse 121 100 98 Resp 28 20 B/P (MAP) 124/112 (116) 111/82 (92) Pulse Ox 90 91 93 O2 Delivery Nasal Cannula Nasal Cannula Nasal Cannula O2 Flow Rate 2.00 2.00 2.00 06/17/22 06/17/22 06/17/22 06/17/22 08:00 08:00 08:00 08:45 Temp 36.0 Pulse 117 100 Resp 19 B/P (MAP) 120/83 (95) 124/112 Pulse Ox 93 94 O2 Delivery Nasal Cannula Nasal Cannula O2 Flow Rate 2.00 2.00 06/17/22 06/17/22 06/17/22 06/17/22 09:00 10:00 11:00 12:00 Pulse 124 126 113 104 Resp 22 17 B/P (MAP) 111/76 (88) 95/80 (85) 112/88 (96) 105/86 (92) Pulse Ox 92 91 92 93 O2 Delivery Nasal Cannula Nasal Cannula Nasal Cannula Nasal Cannula O2 Flow Rate 2.00 2.00 2.00 2.00 06/17/22 06/17/22 06/17/22 06/17/22 12:00 12:00 13:00 13:00 Temp 36.0 Pulse 70 101 B/P (MAP) 104/70 (81) Pulse Ox 93 91 O2 Delivery Nasal Cannula Nasal Cannula O2 Flow Rate 2.00 2.00 06/17/22 06/17/22 06/17/22 06/17/22 14:00 15:00 15:49 16:00 Pulse 85 89 115 B/P (MAP) 116/92 (100) 112/98 (103) 112/70 (84) Pulse Ox 92 91 95 94 O2 Delivery Nasal Cannula Nasal Cannula Nasal Cannula Nasal Cannula O2 Flow Rate 2.00 2.00 2.00 2.00 06/17/22 06/17/22 16:00 17:00 Temp 35.8 Pulse 115 B/P (MAP) 113/88 (96) Pulse Ox 92 O2 Delivery Nasal Cannula O2 Flow Rate 2.00 06/17/22 00:00 Intake Total 560 ml Output Total 0 ml Balance 560 ml Capillary Refill : Constitutional: AAO x 3, well-developed, well-nourished HEENT: PERRL, hearing is well preserved, oral hygience is good Neck: No carotid bruit; carotid pulses are 2 + bilaterally Respiratory: No accessory muscle use, No respiratory distress; chest expansion is symmetric, chest is bilaterally symmetric, lungs clear to auscultation Cardiovascular: irregularly irregular; No JVD; S1 and S2 Gastrointestinal: soft, distended; No guarding; audible bowel sounds (hyperactive BS) Extremities: other Neurologic/Psychiatric: grossly intact (moves all extremities) Skin: No rash on exposed areas, No ulcerations on exposed areas Data Review Labs Laboratory Tests 06/17/22 03:47: White Blood Count 9.0, Red Blood Count 4.65, Hemoglobin 13.9, Hematocrit 43, Mean Corpuscular Volume 93, Mean Corpuscular Hemoglobin 30, Mean Corpuscular Hemoglobin Concent 32, Red Cell Distribution Width 13.6, Platelet Count 218, Mean Platelet Volume 10.8, Sodium Level 141, Potassium Level 4.1, Chloride Level 105, Carbon Dioxide Level 18L, Anion Gap 18H, Blood Urea Nitrogen 21H, Creatinine 1.11, Estimat Glomerular Filtration Rate 67, BUN/Creatinine Ratio 19, Glucose Level 158H, Calcium Level 9.3 A/P-Cardiology Assessment/Admission Diagnosis Newly dx a-fib with RVR - HR improved with Cardizem gtt, but not well controlled - OAC with Eliquis started on 06-16-22 - Echo Abd discomfort with n/v/d - undetermined etiology - management per Medical services Discussion and Recomendations Newly dx a-fib with RVR - currently on Cardizem gtt - Continue OAC Abdominal pain with nausea - undetermined etiology - management per medical services JONEL LUNDY MD FACP [facility] Jun 17, 2022 17:13
[2022-06-17] MEDS: APIXABAN 5 MG (ELIQUIS) TABLET PO SCH (20:39)
[2022-06-17] MEDS: MELATONIN 3 MG TABLET PO PRN (23:03)
[2022-06-18] MEDS: dilTIAZem DRIP PRE-MIX 125 ML IV SCH ×2 (02:29→11:06)
[2022-06-18 04:05] LABS: HEMATOCRIT 44 % (40-54); HEMOGLOBIN 14.1 g/dL (13.3-17.7); MEAN CORPUSCULAR HEMOGLOBIN 30 pg (25-34); MEAN CORPUSCULAR HGB CONC 32 g/dL (32-36); MEAN CORPUSCULAR VOLUME 92 fL (80-99); MEAN PLATELET VOLUME 10.8 fL (9.0-12.2); PLATELET COUNT 254 10^3/uL (130-400); WHITE BLOOD COUNT 15.1 10^3/uL (4.3-11.0)
[2022-06-18 04:32] LABS: CALCIUM 9.8 MG/DL (8.5-10.1); CREATININE SERUM 2.31 MG/DL (0.60-1.30); POTASSIUM 4.6 MMOL/L (3.6-5.0)
[2022-06-18] MEDS: meTOprolol 5 MG/5 ML (LOPRESSOR) VIAL IV SCH ×2 (05:23→11:06)
[2022-06-18] MEDS: CATHETER FLUSH 10 ML SYR IVP SCH ×2 (05:23→14:08)
[2022-06-18] MEDS ORDERED: MAGNESIUM 1 GM/100 ML IVPB 100 ML IV SCH (06:00)
[2022-06-18] MEDS ORDERED: KCL 20 MEQ TAB (K-DUR) PO SCH (06:00)
[2022-06-18] MEDS ORDERED: POTASSIUM CL 10MEQ/50ML IVPB 50 ML IV SCH (06:00)
--- NOTE | 2022-06-18 06:03 | Progress Note - Hospitalist ---
Subjective HPI/CC On Admission Date Seen by Provider: Jun 18, 2022 Patient is 81-year-old male with past medical history of BPH who presented to the emergency department due to shortness of breath. He states his symptoms started a couple of weeks ago and he was previously seen in Dr. Roberts in [place] but switched to Dr. GRAHAM and saw his nurse practitioner Malcom yesterday. On evaluation there he was found to be quite tachycardic and EKG revealed new onset atrial fibrillation. He was referred to the emergency department was found to be in A. fib with RVR. He was started on a Cardizem drip and was admitted to the ICU here. He reports his shortness of breath has improved but he has had significant nausea and vomiting overnight with some abdominal pain. He is quite jittery and states he believes his nausea is due to his nerves as he does not like going to the doctor being in the hospital. He remains in atrial fibrillation with rates in the 110s. Subjective/Events-last exam RN reports having a rough night with confusion. stayed overnight as well. Rn states UOP just dribbles but doesn't think he would tolerate a corbin. bladder scan shows around 150ml. Still on cardizem gtt. Focused Exam Lactate Level 06/16/22 14:25: Lactic Acid Level 1.73 Objective Exam Vital Signs Vital Signs Date Time Temp Pulse Resp B/P (MAP) Pulse Ox O2 Delivery O2 Flow Rate FiO2 06/18/22 04:00 36.3 06/18/22 04:00 95 Nasal Cannula 2.00 06/18/22 02:29 83 113/88 06/17/22 23:00 26 06/16/22 19:26 21 Capillary Refill : General Appearance: Other (confused but cooperative) Respiratory: Lungs Clear, No Respiratory Distress Cardiovascular: Regular Rate, Rhythm, No Murmur Gastrointestinal: Normal Bowel Sounds, Soft Neurologic/Psychiatric: Alert, Other (oriented to person and place) Results/Procedures Lab Laboratory Tests 06/18/22 03:54 Patient resulted labs reviewed. Assessment/Plan Assessment and Plan Assess & Plan/Chief Complaint new onset a fib w/ RVR pleural effusion Cardizem gtt still Cardiology consulted, appreciate recs Eliquis for stroke prophylaxis echo pending GENNY Likely hypovolemic due to vomiting yesterday and lasix Hold Lasix IV started Abd pain and nausing Zofran prn Phenergan as second line agent KUB negative prn improved overnight BPH Start flomax DVT ppx: Eliquis Critical Care Critically Ill Patient Diagnosis/Problems Diagnosis/Problems (1) Atrial fibrillation with RVR (2) Pleural effusion Status: Acute (3) Orthopnea Status: Acute (4) BPH (benign prostatic hyperplasia) DIANA PARKINSON MD Jun 18, 2022 06:03
[2022-06-18] MEDS ORDERED: NS IV 1000 ML 1,000 ML ONE (06:04)
[2022-06-18] MEDS: NS IV 1000 ML 1,000 ML IV SCH ×2 (06:09→16:30)
[2022-06-18] MEDS: RT-ALBUTEROL SULF 2.5 MG/3 ML PRE-MIX VIAL INH SCH (08:02)
--- NOTE | 2022-06-18 08:18 | Tele-ICU Progress Note ---
Subjective Date Seen by a Provider: Jun 18, 2022 Time Seen by a Provider: 08:16 Subjective/Events-last exam This virtual visit was conducted using real time audio/video. On IV Cardizem/metoprolol for a fib with RVR, current V rate is in 89's WBC is up ro 15k, was 9, Hb stable For last 24h UO has been poor, Cr rising to 2.31, will get renal teleconsult or may need transfer Also had nausea and vomiting, seemed to respond to scopalamine and Compazine getting more confused, agitated I reviewed CXR from this morning, looks worse with more atelectais/infiltrate, will add IV Cefeime g every 24 h Sepsis Event Evaluation Height, Weight, BMI Height: '" Weight: lbs. oz. kg; 26.56 BMI Method: Focused Exam Lactate Level 06/16/22 14:25: Lactic Acid Level 1.73 Exam Exam Patient acknowledged, consented, and participated in this virtual visit which was conducted using real time audio/video Vital Signs Date Time Temp Pulse Resp B/P (MAP) Pulse Ox O2 Delivery O2 Flow Rate FiO2 06/18/22 06:00 93 34 108/95 (99) 93 Nasal Cannula 2.00 06/18/22 05:00 105 30 143/83 (103) 93 Nasal Cannula 2.00 06/18/22 04:00 36.3 06/18/22 04:00 95 Nasal Cannula 2.00 06/18/22 02:29 83 113/88 06/18/22 02:00 114 33 118/96 (103) 91 Nasal Cannula 2.00 06/18/22 01:00 114 06/18/22 01:00 104 28 117/92 (100) 92 Nasal Cannula 2.00 06/18/22 00:00 105 36 124/87 (99) 93 Nasal Cannula 2.00 06/17/22 23:59 95 Nasal Cannula 2.00 06/17/22 23:00 105 26 127/101 (110) 90 Nasal Cannula 2.00 06/17/22 22:00 112 31 117/87 (97) 93 Nasal Cannula 2.00 06/17/22 21:00 107 23 113/86 (95) 93 Nasal Cannula 2.00 06/17/22 20:00 36.1 06/17/22 20:00 89 20 119/96 (104) 93 Nasal Cannula 2.00 06/17/22 20:00 95 Nasal Cannula 2.00 06/17/22 19:27 93 Nasal Cannula 2.00 06/17/22 19:00 90 28 115/92 (100) 93 Nasal Cannula 2.00 06/17/22 19:00 83 06/17/22 18:05 115 113/88 06/17/22 18:00 118 123/90 (101) 94 Nasal Cannula 2.00 06/17/22 17:00 115 113/88 (96) 92 Nasal Cannula 2.00 06/17/22 16:00 35.8 06/17/22 16:00 115 112/70 (84) 94 Nasal Cannula 2.00 06/17/22 15:49 95 Nasal Cannula 2.00 06/17/22 15:00 89 112/98 (103) 91 Nasal Cannula 2.00 06/17/22 14:00 85 116/92 (100) 92 Nasal Cannula 2.00 06/17/22 13:00 101 06/17/22 13:00 70 104/70 (81) 91 Nasal Cannula 2.00 06/17/22 12:00 36.0 06/17/22 12:00 93 Nasal Cannula 2.00 06/17/22 12:00 104 105/86 (92) 93 Nasal Cannula 2.00 06/17/22 11:00 113 17 112/88 (96) 92 Nasal Cannula 2.00 06/17/22 10:00 126 22 95/80 (85) 91 Nasal Cannula 2.00 06/17/22 09:00 124 22 111/76 (88) 92 Nasal Cannula 2.00 06/17/22 08:45 100 124/112 I & O 06/18/22 07:00 Intake Total 1050 ml Output Total 125 ml Balance 925 ml Height & Weight Height: '" Weight: lbs. oz. kg; 26.56 BMI Method: General Appearance: Other (confused but cooperative) HEENT: PERRL/EOMI, Moist Mucous Membranes Neck: Normal Inspection, Supple Respiratory: Lungs Clear, No Respiratory Distress, Decreased Breath Sounds Cardiovascular: Regular Rate, Rhythm, No Murmur, Irregularly Irregular (current HR 101) Gastrointestinal: normal bowel sounds Extremity: Normal Capillary Refill, No Calf Tenderness, Pedal Edema (+2 edema), Swelling Neurologic/Psychiatric: Alert, Other (oriented to person and place) Skin: Normal Color, Warm/Dry Lymphatic: No Adenopathy Results Lab Laboratory Tests 06/16/22 14:25 06/17/22 03:47 06/18/22 03:54 Assessment/Plan Assessment/Plan A fib with RVR, rate is controlled, will switch over to oral cardizem, once can swallow, for now continue on IV Rising Cr and decreased UO, will order renal consult On Compazine, CXR looks worse with incrased infiltrate and atelectasis, will add IV Cefepime and also give IVF saline bolus to see if UO will increase Spoke with Moncho about plan Critical Care: Critically Ill Patient CELINA MCCRAY MD Jun 18, 2022 08:18
--- NOTE | 2022-06-18 08:31 | Physical Therapy Progress Note ---
Therapy Progress Note Patient on hold today per nursing due to decline in medical status. KAREN NAILS PT Jun 18, 2022 08:31
--- NOTE | 2022-06-18 08:54 | Occ Therapy Progress Note ---
Therapy Progress Note Per PT, nursing requests to hold treatment today due to decline in medical status. Gema Jones OT Jun 18, 2022 08:54
[2022-06-18] MEDS: APIXABAN 5 MG (ELIQUIS) TABLET PO SCH (09:00)
[2022-06-18] MEDS ORDERED: NS IV 500 ML 500 ML IV ONE (09:15)
[2022-06-18] MEDS ORDERED: LIDOCAINE UROJET 2% GEL 10 ML PKG TOP ONE (09:45)
[2022-06-18] MEDS ORDERED: LIDOCAINE UROJET 2% GEL 10 ML PKG ONE (09:47)
[2022-06-18 11:06] VITALS: BP 111/89
--- NOTE | 2022-06-18 12:18 | Diagnostic Imaging Report ---
Indication: Infiltrates. Compared with study 06/16/2022 Findings: There is progressive volume loss in the lung bases with increased basilar consolidations and increased elevation of the diaphragms. This is more so right than left. Heart is enlarged. There is an element of some central vascular congestion. Impression: 1. Decreased lung expansion with progressive elevation of the right greater than the left diaphragms and increased bibasilar consolidations. 2. Cardiomegaly and mild vascular congestion is not clearly changed. Dictated by: Dictated on workstation # [id number]
[2022-06-18] MEDS ORDERED: CEFEPIME INJECTION 1,000 MG in NS (IVPB) 50 ML IV SCH (13:00)
--- NOTE | 2022-06-18 13:33 | Progress Note - Cardiology ---
Cardiology SOAP Progress Note Objective: I&O/Vital Signs 06/18/22 06/18/22 06/18/22 06/18/22 02:00 02:29 04:00 04:00 Temp 36.3 Pulse 114 83 Resp 33 B/P (MAP) 118/96 (103) 113/88 Pulse Ox 91 95 O2 Delivery Nasal Cannula Nasal Cannula O2 Flow Rate 2.00 2.00 06/18/22 06/18/22 06/18/22 06/18/22 05:00 06:00 07:00 07:00 Pulse 105 93 128 112 Resp 30 34 35 B/P (MAP) 143/83 (103) 108/95 (99) 121/86 (98) Pulse Ox 93 93 93 O2 Delivery Nasal Cannula Nasal Cannula Nasal Cannula O2 Flow Rate 2.00 2.00 2.00 06/18/22 06/18/22 06/18/22 06/18/22 08:00 08:00 08:02 09:00 Temp 36.1 Pulse 105 97 Resp 36 32 B/P (MAP) 128/85 (99) 123/93 (103) Pulse Ox 91 93 94 O2 Delivery Nasal Cannula Nasal Cannula Nasal Cannula O2 Flow Rate 2.00 2.00 2.00 06/18/22 06/18/22 06/18/22 06/18/22 10:00 11:00 11:06 12:00 Pulse 125 101 125 91 Resp 34 35 34 B/P (MAP) 111/89 (96) 127/82 (97) 111/89 117/80 (92) Pulse Ox 93 92 92 O2 Delivery Nasal Cannula Nasal Cannula Nasal Cannula O2 Flow Rate 2.00 2.00 2.00 06/18/22 12:00 Temp 36.1 06/18/22 00:00 Intake Total 750 ml Output Total 50 ml Balance 700 ml Constitutional: AAO x 3, well-developed, well-nourished Respiratory: No accessory muscle use, No respiratory distress; chest expansion is symmetric, chest is bilaterally symmetric, lungs clear to auscultation Cardiovascular: irregularly irregular; No JVD; S1 and S2 Gastrointestional: soft, distended; No guarding; audible bowel sounds (hyperactive BS) Extremities: other Neurologic/Psychiatric: grossly intact (moves all extremities) Skin: No rash on exposed areas, No ulcerations on exposed areas Results/Procedures: Labs Laboratory Tests 06/18/22 03:54: White Blood Count 15.1H, Red Blood Count 4.73, Hemoglobin 14.1, Hematocrit 44, Mean Corpuscular Volume 92, Mean Corpuscular Hemoglobin 30, Mean Corpuscular Hemoglobin Concent 32, Red Cell Distribution Width 13.7, Platelet Count 254, Mean Platelet Volume 10.8, Sodium Level 143, Potassium Level 4.6, Chloride Level 105, Carbon Dioxide Level 17L, Anion Gap 21H, Blood Urea Nitrogen 38H, Creatinine 2.31H, Estimat Glomerular Filtration Rate 28, BUN/Creatinine Ratio 16, Glucose Level 137H, Calcium Level 9.8 Microbiology 06/16/22 MRSA Screen - Final, Complete MRSA not isolated Procedures NAME: WILFREDO FL[facility]ES [facility] REC#: [id number] PT STATUS: ADM IN : 1940 PHYSICIAN: CELINA MCCRAY MD ADMIT DATE: 06/16/22/ICU Draft Date of Exam:06/18/22 CHEST 1 VIEW, AP/PA ONLY Indication: Infiltrates. Compared with study 06/16/2022 Findings: There is progressive volume loss in the lung bases with increased basilar consolidations and increased elevation of the diaphragms. This is more so right than left. Heart is enlarged. There is an element of some central vascular congestion. Impression: 1. Decreased lung expansion with progressive elevation of the right greater than the left diaphragms and increased bibasilar consolidations. 2. Cardiomegaly and mild vascular congestion is not clearly changed. Dictated on workstation # [id number] Dict: 06/18/22 1208 Trans: 06/18/22 1218 [facility] [id number] Interpreted by: NANY MALDONADO Electronically signed by: A/P: Assessment: Newly dx a-fib with RVR - HR improved with Cardizem gtt and IV Lopressor - OAC with Eliquis started on 06-16-22 - remains on Cardizem gtt and IV Lopressor d/t continued nausea - Echocardiogram of 06-17-22 showed LVEF 60-65%. LA and RA mod to severely dilated. Severe TR. PASP 25-30mmHg Abdominal pain with nausea - undetermined etiology - management per medical services GENNY - possibly secondary to vol depletion d/t emesis and diuretics - diuretics have been stopped - receiving IV replacement Leukocytosis - undetermined etiology - medical services managing Plan: Newly dx a-fib with RVR - HR improved with Cardizem gtt and IV Lopressor - OAC with Eliquis started on 06-16-22 Abd discomfort with n/v/d - undetermined etiology - management per Medical services GENNY - possilbly secondary to vol depletion d/t vomiting/diuretics - IVF infusing Family has requested transfer to [place] - awaiting bed placement at [facility] per Dr. Lim dx a-fib with RVR CRYSTAL MORENO Jun 18, 2022 13:33
[2022-06-18] MEDS ORDERED: GABA300C PO (14:53)
--- NOTE | 2022-06-18 15:05 | Discharge Summary ---
Diagnosis/Chief Complaint Date of Admission Jun 16, 2022 at 5:51 pm Date of Discharge Discharge Date: Jun 18, 2022 Admission Diagnosis new onset a fib RVR Primary Care Pipo Solano DO Discharge Diagnosis (1) Atrial fibrillation with RVR (2) Pleural effusion Status: Acute (3) Orthopnea Status: Acute (4) BPH (benign prostatic hyperplasia) Discharge Summary Discharge Physical Exam Allergies: Coded Allergies: No Known Drug Allergies (Unverified , 07/27/19) Vitals & I&Os Vital Signs Date Time Temp Pulse Resp B/P (MAP) Pulse Ox O2 Delivery O2 Flow Rate FiO2 06/18/22 16:00 93 Nasal Cannula 3.00 06/18/22 16:00 121 125/92 (103) 06/18/22 16:00 36.2 06/18/22 12:00 34 06/16/22 19:26 21 General Appearance: Other (confused) Respiratory: No Accessory Muscle Use, Decreased Breath Sounds Cardiovascular: Irregularly Irregular Neurologic/Psychiatric: Alert, Disoriented Hospital Course Patient was admitted to the hospital secondary to atrial fibrillation with rapid ventricular rate. This was new onset and he was seen in consultation by cardiology. He was treated with Cardizem drip with moderate control of his rate. He had multiple episodes of emesis after arrival and following that he had worsening mentation and elevated white blood cell count. He was started empirically on cefepime to cover for possible aspiration pneumonia. He also had decreased urine output and rising creatinine from 0.89 on admission to 2.31 on day of discharge. Due to the complicating factors and worsening renal function he was transferred to [facility]. Labs (last 24 hrs) Microbiology 06/16/22 MRSA Screen - Final, Complete MRSA not isolated Patient resulted labs reviewed. Discussion & Recommendations Discharge Planning: >30 minutes discharge planning Discharge Home Medications: Active Scripts Active Reported Neurontin (Gabapentin) 300 Mg Capsule 600 Mg PO TID LAST FILLED 03-02-2022 #180/30 DAY SUPPLY Instructions to patient/family Please see electronic discharge instructions given to patient. DIANA PARKINSON MD Jun 18, 2022 15:05
[2022-06-18] MEDS ORDERED: TAMSULOSIN 0.4 MG (FLOMAX) CAP PO SCH (18:00)
[2022-06-18] MEDS ORDERED: APIXABAN 2.5 MG (ELIQUIS) TABLET PO SCH (21:00)
[2022-06-20] MEDS ORDERED: SCOPOLAMINE PATCH REMOVAL TP NR (13:30)
== END 2022-06-18 17:10 | disposition short-term general hospital (02) | DRG 309 ==
LOC: EDUNIT# 14:55 → ER FS 14:56 → ICU 17:51
PROVIDERS: ADMIT Family Medicine; ATTEND Family Medicine
DX: I48.91 Unspecified atrial fibrillation (principal); J90 Pleural effusion, not elsewhere classified; N17.9 Acute kidney failure, unspecified; R06.01 Orthopnea; N40.0 Benign prostatic hyperplasia without lower urinary tract symptoms; R10.9 Unspecified abdominal pain; R11.0 Nausea; E86.1 Hypovolemia; Z87.891 Personal history of nicotine dependence; G62.9 Polyneuropathy, unspecified; Z20.822 Contact with and (suspected) exposure to COVID-19; E86.9 Volume depletion, unspecified; D72.829 Elevated white blood cell count, unspecified
CPT/HCPCS: 36415; 71045; 74018; 80048; 80053; 83605; 83735; 84484; 85025; 85027; 87081; 87636; 93005; 93306; 94640